=== PATIENT | female | born 1975 ===

== ENCOUNTER 2022-12-12 08:55 | Outpatient (CLI) | payer SELFPAY | END 2022-12-12 08:56 | disposition home or self-care (01) | LOC: AMB 12-23 14:09 | PROVIDERS: Visit Provider Family Medicine | DX: M54.9 Dorsalgia, unspecified (principal) | CPT/HCPCS: A0425; A0429 ==

== ENCOUNTER 2022-12-12 09:18 | Emergency (ER) | payer SELFPAY ==
[2022-12-12 09:23] VITALS: BP 146/80; PULSE 73; RESP 20; TEMP 36.1; O2SAT 100; BMI 23.2
--- NOTE | 2022-12-12 10:04 | CRLHL7_ITS ---
For Patients: As a result of the Century Cures Act, medical imaging exams and procedure reports are released immediately into your electronic medical record. You may view this report before your referring provider. If you have questions, please contact your health care provider. INDICATION: Right lower quadrant and right flank pain TECHNIQUE: Axial images were obtained from the diaphragm to the pubic symphysis. Reformats were obtained in the coronal and sagittal plane. IV Contrast: 66 cc Isovue 370 Oral Contrast: None COMPARISON: None. FINDINGS: Lower chest: Unremarkable. Liver: Unremarkable. Normal in size and attenuation. No masses. Gallbladder and bile ducts: Status post cholecystectomy. Spleen: Unremarkable. Normal in size without mass. Pancreas: Unremarkable. No mass or inflammation. Adrenal glands: Unremarkable. No nodules. Kidneys: Mildly delayed nephrogram on the right with mild right hydronephrosis. Obstructing 3 x 2 x 2 millimeter stone at the right ureterovesicular junction (series 2, image 109; series 4, image 61) Vasculature: Unremarkable. GI tract: The stomach is unremarkable. No dilated loops of large or small intestine. Normal appendix. Pelvis: Unremarkable. Bones: Unremarkable for age. IMPRESSION: Nephrolithiasis with mild right hydronephrosis and obstructing 3 x 2 x 2 millimeter stone at the right ureterovesicular junction. Please note that all CT scans at this facility use dose modulation, iterative reconstruction, and/or weight-based dosing when appropriate to reduce radiation dose to as low as reasonably achievable. Dictated by Jayme Parmar MD @ 12/12/2022 11:29:18 AM (Electronically Signed)
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
[2022-12-12 10:40] LABS: Appearance Urine Clear (Clear); Bilirubin Urine Negative (Negative); Blood Urine 3+ (Negative); Color Urine Yellow (Yellow); Glucose Urine Negative (Negative); Ketones Urine Negative (Negative); Leukocyte Esterase Urine Negative (Negative); Nitrite Urine Negative (Negative); Protein Urine Trace (Negative); Specific Gravity Urine 1.025 (1.000-1.030); Urobilinogen Urine 0.2 (0.2-1.0); pH Urine 6.5 (5.0-8.5)
[2022-12-12 10:41] LABS: Basophils Percent Auto 0.3 % (0.0-3.0); Eosinophils Percent Auto 0.4 % (0.0-7.0); Hematocrit 43.6 % (33.0-51.0); Hemoglobin* 14.5 gm/dL (12.0-16.0); Immature Granulocytes Pct Auto 0.4 %; Lymphocytes Percent Auto 10.2 % (20-44); Mean Corpuscular HGB Conc 33 gm/dL (32-36); Mean Corpuscular Hemoglobin 33 pg (26-34); Mean Corpuscular Volume 98 fL (80-100); Monocytes Percent Auto 3.7 % (0.0-11.0); Platelet Count* 291 K/uL (140-440); RDW Coefficient of Variation % 12.7 % (11.5-15.5); Red Blood Count 4.45 m/uL (4.00-5.20); White Blood Count* 11.22 K/uL (4.50-11.00)
[2022-12-12 10:54] LABS: Slide Review Reflex No
[2022-12-12 11:05] LABS: Albumin* 4.6 g/dL (3.3-5.0); Chloride* 102 mmol/L (96-114)
[2022-12-12 11:06] LABS: Potassium* 3.5 mmol/L (3.6-5.1); Sodium* 139 mmol/L (135-149)
[2022-12-12 11:08] LABS: Creatinine* 0.6 mg/dL (0.5-1.5); Est. Creatinine Clearance* 101.17; Estimated Glomerular Filt Rate 112 ml/min
[2022-12-12 11:09] LABS: Alanine Aminotransferase* 32 U/L (4-35); Alkaline Phosphatase* 64 U/L (40-150); Aspartate Amino Transferase* 30 U/L (12-35); Bilirubin Total* 0.5 mg/dL (0.1-1.5); Blood Urea Nitrogen* 17 mg/dL (5-24); Calcium* 8.9 mg/dL (8.4-10.6); Carbon Dioxide* 27 mmol/L (20-32); Glucose* 122 mg/dL (60-115); Lipase* 89 U/L (23-300); Total Protein* 8.2 g/dL (6.0-8.3)
[2022-12-12 11:19] LABS: Bacteria Urine Moderate; Squamous Epithelial Cell Urine Few (None-Few); WBC Urine 0-2 (0-5)
[2022-12-12 11:24] LABS: C Reactive Protein* < 0.5 mg/dL (0.5-1.0)
[2022-12-12] MEDS: 0.9 % SODIUM CHLORIDE 1000 ml 1,000 ML IV (11:26)
[2022-12-12] MEDS: ONDANSETRON ODT 4 MG TAB PO (12:03)
[2022-12-12 12:10] VITALS: BP 145/85; PULSE 78; RESP 20; TEMP 36.7; O2SAT 100
--- NOTE | 2022-12-16 14:50 | ED.NURSE ---
attempted multiple times to contact patient at the cell phone number listed and email to patient sent with no reply. Also, contacted other two contacts with a message left to call and second contact unable to leave a message. Sent a script and a letter explaining the need to take the medication and to fill the script for a secondary infection.
--- NOTE | 2022-12-27 14:24 | ED.NURSE ---
Pt called and a message was taken by [facility] around 1130 today. Pt states she received a letter in the mail with an RX for keflex. Pt stated to [facility] that she is allergic to Keflex. This nurse stated I would look up her chart and return call. This nurse was not able to return call until now due to high acuity pt. Number that pt called on was [phone]. Voice mail belongs to Regino. Left message asking for Diana to return call. Attempted to call number listed in chart, not an active number. Second number in chart has too many numbers to dial.
--- NOTE | 2022-12-31 08:15 | ED.NURSE ---
Patient called in via phone after receiving a letter in the mail along with a prescription to take Keflex but is allergic to the medication. Multiple attempts made to call patient and culture was done on 12/12/22 providers in the ED feel the patient should be recheck UA before placed on an antibiotic. Attempted to return phone call at [phone] left a message (vague) to call back to ED and given phone number. Patient stated feeling okay with a little lower back discomfort. concerned about starting on an antibiotic as allergic to PCN, Lyrica, Morphine and Keflex. Unsure which provider wrote Macrobid 100mg orally BID x 5 days and did not call into [facility] as unknown provider asked Dr. Weiner and felt the patient should returnt o PCP for a recheck of UA.
--- NOTE | 2023-01-03 18:46 | ED.NURSE ---
Pt called and states her abx rx was not at her pharmacy. Chart accessed and relayed to Pt info from previous RN note: Pt should be evaluated by PCP or UC for exam and repeat UA. No Rx was sent to pharmacy. Pt verbalizes understanding and states she will be seen by MD. Contact number verified for Pt.
--- NOTE | 2023-01-04 10:01 | ED.NURSE ---
Spoke with patient today on the phone about her prescription that was sent to [facility] a couple of weeks ago after being seen in the ER. Reviewed patient's record. Notified her she needs to be seen again by a provider before a prescription could be filled as was previously recommended. She stated that she wanted to know if it was okay to leave a urine test today if she is having menses. Stated it is a clean catch technique and typically if she needs treatment, that is not an exclusion. Talked about primary care and Urgent Care options. Reiterated that Dr. Guzman does not see patient's in clinic and encouraged her to make an appointment with a primary care provider. She is currently in between insurances but will plan to make an appointment with someone to manage her day to day health concerns.
== END 2022-12-12 13:40 | disposition home or self-care (01) ==
PROVIDERS: Emergency Provider Family Medicine
DX: N23 Unspecified renal colic (principal); N20.0 Calculus of kidney
CPT/HCPCS: 36415; 74177; 80053; 81001; 83690; 85025; 86140; 87086; 87186; 96360; 99284; 99285; A9270; J7030; Q9967

== ENCOUNTER 2024-11-16 16:33 | Emergency (ER) | payer OTHER, SELFPAY ==
[2024-11-16 16:39] VITALS: BP 153/92; PULSE 89; RESP 16; TEMP 36.5; O2SAT 96; BMI 27.1
--- NOTE | 2024-11-16 17:14 | ED_ITS ---
HPI - General Adult General Chief complaint: Eye Problems Stated complaint: L eye hurts, headache Time Seen by Provider: 11/16/24 16:42 History of Present Illness HPI narrative: This 49-year-old female comes in reporting headache most days over the past month or so. She states that the headache seems to go away after taking food around noon time. She comes in today because while in the shower this morning she had a brief episode where she states that her right eye vision turned black for a minute or 2. She has not had symptoms like this in the past. She does not have any history of blood clots or rheumatologic disease. She states that her vision is normal now. She does not really report the headache as a pain but more of like a pressure that seems to occur more behind her eyes. Related Data Previous Rx's ?Medication ?Instructions ?Recorded ketorolac 10 mg tablet 10 mg PO TID 5 days #15 tabs 11/16/24 methylprednisolone 4 mg tablets in See Rx Instructions PO .COMPLEX 11/16/24 a dose pack (Medrol (Reynaldo)) #21 ea Allergies Allergy/AdvReac Type Severity Reaction Status Date / Time acetaminophen (From NyQuil) Allergy Severe Difficulty Verified 11/16/24 16:50 Swallowing dextromethorphan (From Allergy Severe Difficulty Verified 11/16/24 16:50 NyQuil) Swallowing doxylamine (From NyQuil) Allergy Severe Difficulty Verified 11/16/24 16:50 Swallowing Penicillins Allergy Severe Difficulty Verified 11/16/24 16:48 Breathing pseudoephedrine (From NyQuil) Allergy Severe Difficulty Verified 11/16/24 16:50 Swallowing pregabalin (From Lyrica) Allergy Unknown Verified 11/16/24 16:48 morphine AdvReac Severe Verified 11/16/24 16:48 Review of Systems Status of ROS: Reports: 10 or more systems reviewed and unremarkable except as noted in History and below Narrative: Constitutional: No fevers, no weight gain or loss. Eyes: No discharge. Brief vision change as described above. HENT: No congestion, no sore throat, no ear pain. Cardiovascular: No chest pain, no palpitations. Respiratory: No shortness of breath, no wheezes, no cough. Gastrointestinal: No abdominal pain, no vomiting, no diarrhea. Genitourinary: No dysuria, no hematuria. Musculoskeletal: Normal range of motion. Skin: No rashes, no pruritis. Neurological: No dizziness, weakness, sensory change, speech change. Endo/Heme/Allergies: No bruising or bleeding. No polydipsia. Pysch: no suicidality, no anxiety, no insomnia. All other systems reviewed and are negative. [facility] Social History Smoking Status: Never smoker Do you use any of these nicotine containing products: None How often do you have a drink containing alcohol: never How often do you have six or more drinks on one occasion: Never AUDIT-C Alcohol total score: 0 Non-prescribed substance use: denies use service: No Exam Narrative: Exam Narrative: Constitutional: Well-developed, well-nourished, no acute distress. HEENT: Normocephalic, atraumatic. Funduscopic exam appears normal. Visual shultz intact. Her left eye has a subconjunctival hematoma on the lateral aspect. Neck: Normal range of motion. Nontender. Supple. Heart: Regular. No murmurs. Normal rate. Intact distal pulses. Lungs: Clear to auscultation. No chest discomfort. No wheezes, rhonchi, or rales. Abdomen: Normal bowel sounds. Nontender. No rebound tenderness. Genitalia: Deferred. Back: No midline tenderness. Normal range of motion. Extremities: Normal range of motion. No injury. Skin: Intact. No rash. Warm. No erythema or pallor. Neurologic: No altered sensation. No weakness. Alert and oriented. Psychiatric: No suicidality. No anxiety or depression. No insomnia. Nursing notes and vitals signs are reviewed. Const: Vital Signs, click to edit/add: Vital Signs - 24 hr 11/16/24 16:39 Temperature 97.7 F Pulse Rate [Pulse Oximeter] 89 Respiratory Rate 16 Blood Pressure [Ri ght Upper Arm] 153/92 H Pulse Oximetry 96 Course Vital Signs Vital signs: Initial Vital Signs Temperature 97.7 F 11/16/24 16:39 Temperature Source Temporal Artery Scan 11/16/24 16:39 Pulse Rate 89 11/16/24 16:39 Respiratory Rate 16 11/16/24 16:39 Blood Pressure 153/92 H 11/16/24 16:39 Blood Pressure Mean 112 H 11/16/24 16:39 Pulse Oximetry 96 11/16/24 16:39 Vital Signs Temperature 97.7 F 11/16/24 16:39 Pulse Rate 89 11/16/24 16:39 Respiratory Rate 16 11/16/24 16:39 Blood Pressure 153/92 H 11/16/24 16:39 Pulse Oximetry 96 11/16/24 16:39 Temperature 97.7 F 11/16/24 16:39 Pulse Rate 89 11/16/24 16:39 Respiratory Rate 16 11/16/24 16:39 Blood Pressure 153/92 H 11/16/24 16:39 Pulse Oximetry 96 11/16/24 16:39 Medical Decision Making MDM Narrative Medical decision making narrative: This patient comes in reporting mild headaches or pressure over the past month and this morning reports a brief episode of loss of vision in her right eye. She states that everything is back to normal now. Her exam is completely normal except for a subconjunctival hematoma on the lateral aspect of the left eye. Brief loss of vision can be a sign of some very concerning conditions such as amaurosis fugax, temporal arteritis, or a TIA. I did discuss lab and imaging options and the patient declined any CT imaging. She states that she had that done about a year ago. I did check labs in these returned with reassuring findings. In particular her C reactive protein is normal. A sed rate is yet pending but I expect that also to be in normal range. I advised the patient regarding signs and symptoms that would indicate a need for return in bed re- evaluation. Most likely this is a migraine variant. The patient did receive a prescription for Medrol Dosepak and Toradol. Lab Data Labs: Lab Results 11/16/24 Range/Units 17:22 WBC 6.35 (4.50-11.00) K/uL RBC 4.48 (4.00-5.20) m/uL Hgb 14.2 (12.0-16.0) gm/dL Hct 41.8 (33.0-51.0) % MCV 93 (80-100) fL MCH 32 (26-34) pg MCHC 34 (32-36) gm/dL RDW Coeff of Jeet 12.7 (11.5-15.5) % Plt Count 317 (140-440) K/uL Neut % (Auto) 51.9 (42.0-72.0) % Lymph % (Auto) 38.6 (20-44) % [place] % (Auto) 6.5 (0.0-11.0) % Eos % (Auto) 2.2 (0.0-7.0) % Baso % (Auto) 0.3 (0.0-3.0) % Neut # (Auto) 3.30 (1.7-7.0) K/uL Lymph # (Auto) 2.45 (0.90-2.90) K/uL [place] # (Auto) 0.40 (0.00-0.90) K/UL Eos # (Auto) 0.14 (0.00-0.50) K/uL Baso # (Auto) 0.02 (0.00-0.30) K/uL Abs Immat Gran (auto) 0.03 (0.00-0.30) K/uL Imm/Tot Granulo (auto) 0.5 % Sodium 141 (135-149) mmol/L Potassium 3.9 (3.6-5.1) mmol/L Chloride 105 (96-114) mmol/L Carbon Dioxide 27 (20-32) mmol/L Anion Gap 9 (7-15) mEq/L BUN 21 (5-24) mg/dL Creatinine 0.8 (0.5-1.5) mg/dL Estimated Creat Clear 80.51 Estimated GFR 91 ml/min Glucose 134 H (60-115) mg/dL Calcium 9.6 (8.4-10.6) mg/dL C-Reactive Protein < 0.5 L (0.5-1.0) mg/dL Discharge Plan Discharge Clinical Impression: Migraine, Subconjunctival hemorrhage Patient Disposition: Home, Self-Care Condition: Stable Additional Instructions: Take medications as needed and directed. Follow up with MD or return if symptoms are recurrent or worsening. Prescriptions: New ketorolac 10 mg tablet 10 mg PO TID 5 Days Qty: 15 0RF methylprednisolone [Medrol (Reynaldo)] 4 mg tablets,dose pack See Rx Instructions .ROUTE .COMPLEX Qty: 21 0RF Rx Instructions: orally per package directions Follow Up/Referrals: Provider,Not a Local [Primary Care Provider, Family Practice] Stand Alone Forms: [employer] Info Instructions
[2024-11-16 17:27] LABS: Basophils Absolute Auto 0.02 K/uL (0.00-0.30); Basophils Percent Auto 0.3 % (0.0-3.0); Eosinophils Absolute Auto 0.14 K/uL (0.00-0.50); Eosinophils Percent Auto 2.2 % (0.0-7.0); Hematocrit 41.8 % (33.0-51.0); Hemoglobin* 14.2 gm/dL (12.0-16.0); Immature Granulocytes Abs Auto 0.03 K/uL (0.00-0.30); Immature Granulocytes Pct Auto 0.5 %; Lymphocytes Absolute Auto 2.45 K/uL (0.90-2.90); Lymphocytes Percent Auto 38.6 % (20-44); Mean Corpuscular HGB Conc 34 gm/dL (32-36); Mean Corpuscular Hemoglobin 32 pg (26-34); Mean Corpuscular Volume 93 fL (80-100); Monocytes Percent Auto 6.5 % (0.0-11.0); Neutrophils Percent Auto 51.9 % (42.0-72.0); Platelet Count* 317 K/uL (140-440); RDW Coefficient of Variation % 12.7 % (11.5-15.5); Red Blood Count 4.48 m/uL (4.00-5.20); Slide Review Reflex No; White Blood Count* 6.35 K/uL (4.50-11.00)
[2024-11-16 17:38] LABS: Chloride* 105 mmol/L (96-114)
[2024-11-16 17:39] LABS: Potassium* 3.9 mmol/L (3.6-5.1); Sodium* 141 mmol/L (135-149)
[2024-11-16 17:42] LABS: Anion Gap 9 mEq/L (7-15); Blood Urea Nitrogen* 21 mg/dL (5-24); Calcium* 9.6 mg/dL (8.4-10.6); Carbon Dioxide* 27 mmol/L (20-32); Creatinine* 0.8 mg/dL (0.5-1.5); Est. Creatinine Clearance* 80.51; Estimated Glomerular Filt Rate 91 ml/min; Glucose* 134 mg/dL (60-115)
[2024-11-16 17:46] LABS: C Reactive Protein* < 0.5 mg/dL (0.5-1.0)
[2024-11-16 18:53] LABS: Erythrocyte SedimentationRate* 14 mm/hr (2-20)
[2024-11-16 19:05] VITALS: BP 149/95; PULSE 77; RESP 16; O2SAT 99
== END 2024-11-16 19:07 | disposition home or self-care (01) ==
PROVIDERS: Emergency Provider Emergency Medicine Emergency Medical Services
DX: G43.909 Migraine, unspecified, not intractable, without status migrainosus (principal); H11.32 Conjunctival hemorrhage, left eye; H57.12 Ocular pain, left eye
CPT/HCPCS: 36415; 80048; 85025; 85651; 86140; 99283; 99284

== ENCOUNTER 2024-11-19 13:43 | Emergency (ER) | payer OTHER, SELFPAY ==
[2024-11-19 14:01] VITALS: BP 166/93; PULSE 73; RESP 16; TEMP 36.6; O2SAT 97; BMI 27.0
--- NOTE | 2024-11-19 14:27 | CRLHL7_ITS ---
For Patients: As a result of the Century Cures Act, medical imaging exams and procedure reports are released immediately into your electronic medical record. You may view this report before your referring provider. If you have questions, please contact your health care provider. TECHNIQUE: Multiplanar CT examination of the head was performed without the use of intravenous contrast. INDICATION: Headache. Visual disturbances. COMPARISON: None. FINDINGS: No loss of george-white differentiation to suggest recent territorial infarct. No intracranial hemorrhage, abnormal extra-axial fluid collection, hydrocephalus or midline shift. The ventricles and cerebral sulci are normal in caliber. The basal cisterns are patent. The paranasal sinuses and mastoid air cells remain clear. The orbits and calvarium are unremarkable. The cerebellar tonsils are normal position. IMPRESSION: No acute intracranial findings. Please note that all CT scans at this facility use dose modulation, iterative reconstruction, and/or weight-based dosing when appropriate to reduce radiation dose to as low as reasonably achievable. Dictated by Florin Williamson MD @ 11/19/2024 3:11:18 PM (Electronically Signed)
--- NOTE | 2024-11-19 14:27 | ED_ITS ---
HPI - General Adult General Chief complaint: Eye Problems Stated complaint: Swollen left eye Time Seen by Provider: 11/19/24 13:55 Source: patient Mode of arrival: ambulatory Limitations: no limitations History of Present Illness HPI narrative: 49-year-old female coming in today complaining of feeling ?disoriented. Denies the room spinning, denies any other vertiginous symptoms. Denies nausea or vomiting. States that she feels her vision is changed in that the room looks foggy. Patient cannot see out of her right eye very well this has been the case for most of her life. She feels like this has not changed. However her left eye feels foggy and every now and then she sees flashes in that eye. She also states that it feels like there was a mosquito flying by every now and then. Patient states that she started getting migraine headaches approximately 6 months ago. She has not been worked up for this. Has not had any imaging done. Patient states that she was seen in our ER this week for a brief episode of losing consciousness. This has not happened sounds. She describes the episode resolves on her vision going black and she believes that she lost consciousness for couple of minutes. She did not fall or hit her head. Related Data Previous Rx's ?Medication ?Instructions ?Recorded ketorolac 10 mg tablet 10 mg PO TID 5 days #15 tabs 11/16/24 methylprednisolone 4 mg tablets in See Rx Instructions PO .COMPLEX 11/16/24 a dose pack (Medrol (Reynaldo)) #21 ea Allergies Allergy/AdvReac Type Severity Reaction Status Date / Time acetaminophen (From NyQuil) Allergy Severe Difficulty Verified 11/19/24 14:04 Swallowing dextromethorphan (From Allergy Severe Difficulty Verified 11/19/24 14:04 NyQuil) Swallowing doxylamine (From NyQuil) Allergy Severe Difficulty Verified 11/19/24 14:04 Swallowing Penicillins Allergy Severe Difficulty Verified 11/19/24 14:04 Breathing pseudoephedrine (From NyQuil) Allergy Severe Difficulty Verified 11/19/24 14:04 Swallowing pregabalin (From Lyrica) Allergy Unknown Verified 11/19/24 14:04 morphine AdvReac Severe Verified 11/19/24 14:04 Review of Systems Status of ROS: Reports: 10 or more systems reviewed and unremarkable except as noted in History and below PFSH PFSH Social History Smoking Status: Never smoker Do you use any of these nicotine containing products: None How often do you have a drink containing alcohol: never How often do you have six or more drinks on one occasion: Never AUDIT-C Alcohol total score: 0 Non-prescribed substance use: denies use service: No Exam Narrative: Exam Narrative: Well-nourished well-developed patient in no acute distress. Alert and oriented. Answers questions appropriately. Mood and affect are appropriate. Thoughts are goal oriented and rational. No tangential or magical thinking noted. Patient speaks in full sentences without needing to catch her breath. HEENT: Normocephalic atraumatic. Pupils are equally round reactive to light. Extraocular muscles are intact. Conjunctivae are moist, subconjunctival hematoma left lateral eye. Moist mucous membranes. No foreign objects visualized. No pain with extraocular movement. Upper and lower lids are not swollen. Skin: Well perfused without any obvious rashes. Const: Vital Signs, click to edit/add: Vital Signs - 24 hr 11/19/24 14:01 Temperature 98 F Pulse Rate [Pulse Oximeter] 73 Respiratory Rate 16 Blood Pressure [Ri ght Upper Arm] 166/93 H Pulse Oximetry 97 Oxygen Delivery Me thod Room Air Course Course ED Course: We decided to go ahead and proceed with a head CT. Fortunately this was unremarkable. Spoke to Dr. Box who had room to see the patient today. Therefore patient will be sent to the [facility] for further examination. Vital Signs Vital signs: Initial Vital Signs Temperature 98 F 11/19/24 14:01 Temperature Source Temporal Artery Scan 11/19/24 14:01 Pulse Rate 73 11/19/24 14:01 Respiratory Rate 16 11/19/24 14:01 Blood Pressure 166/93 H 11/19/24 14:01 Blood Pressure Mean 117 H 11/19/24 14:01 Blood Pressure Position Sitting 11/19/24 14:01 Pulse Oximetry 97 11/19/24 14:01 Oxygen Delivery Method Room Air 11/19/24 14:01 Vital Signs Temperature 98 F 11/19/24 14:01 Pulse Rate 73 11/19/24 14:01 Respiratory Rate 16 11/19/24 14:01 Blood Pressure 166/93 H 11/19/24 14:01 Pulse Oximetry 97 11/19/24 14:01 Oxygen Delivery Method Room Air 11/19/24 14:01 Temperature 98 F 11/19/24 14:01 Pulse Rate 73 11/19/24 14:01 Respiratory Rate 16 11/19/24 14:01 Blood Pressure 166/93 H 11/19/24 14:01 Pulse Oximetry 97 11/19/24 14:01 Oxygen Delivery Method Room Air 11/19/24 14:01 Medical Decision Making MDM Narrative Medical decision making narrative: 49-year-old female with vision changes. Patient will be sent to the eye clinic for further examination. Imaging Data CT scan - head: Attestation: I have reviewed the pertinent imaging results. Radiologist's impression: TECHNIQUE: Multiplanar CT examination of the head was performed without the use of intravenous contrast. INDICATION: Headache. Visual disturbances. COMPARISON: None. FINDINGS: No loss of george-white differentiation to suggest recent territorial infarct. No intracranial hemorrhage, abnormal extra-axial fluid collection, hydrocephalus or midline shift. The ventricles and cerebral sulci are normal in caliber. The basal cisterns are patent. The paranasal sinuses and mastoid air cells remain clear. The orbits and calvarium are unremarkable. The cerebellar tonsils are normal position. IMPRESSION: No acute intracranial findings. Discharge Plan Discharge Clinical Impression: Vision changes, Subconjunctival hemorrhage Patient Disposition: Home, Self-Care Condition: Stable Additional Instructions: Proceed directly to the [facility] for an eye examination today. Prescriptions: No Action ketorolac 10 mg tablet 10 mg PO TID 5 Days Qty: 15 0RF methylprednisolone [Medrol (Reynaldo)] 4 mg tablets,dose pack See Rx Instructions .ROUTE .COMPLEX Qty: 21 0RF Rx Instructions: orally per package directions Follow Up/Referrals: Provider,Not a Local [Primary Care Provider, Family Practice] Stand Alone Forms: [facility] Info Instructions
[2024-11-19 15:38] VITALS: BP 156/86; PULSE 69; RESP 16
== END 2024-11-19 15:39 | disposition home or self-care (01) ==
PROVIDERS: Emergency Provider Family Medicine
DX: H53.8 Other visual disturbances (principal); H11.32 Conjunctival hemorrhage, left eye
CPT/HCPCS: 70450; 99283; 99284

== ENCOUNTER 2024-12-01 16:45 | Emergency (ER) | payer OTHER, SELFPAY ==
--- OUTSIDE RECORDS SUMMARY | 2024-11-20 00:30 | XMS_ITS | Encounter Summary ---
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 Role Phone No Ref-Primary, Physician Primary Care Provider Reason for Referral * Outpatient (Routine) - Pending Review Specialty Diagnoses / Procedures Referred By Howie kowalski Referred To Contact Neurology Diagnoses Memory problem Procedures EEG Kranthi Hanley MD [address] [place] [id number] Phone: tel: fax: Referral ID Status Reason Start Date Expiration Date V isits Requested Visits Authorized [id number] Pending Review 11/20/2024 11/20/2025 1 1 Reason for Visit * Reason Comments Memory Loss Eye Pain Encounter Details Date Type Department Care Team ([facility] st Contact Info) Description 11/20/2024 12:30 AM CDT - 11/20/2024 11:29 AM CDT Emergency [facility] Emergency Department [address] [place] [id number] José Miguel Spencer DO [address] [place] [address] [id number] Cody Linton MD [address] [place], [place] [id number] Memory problem; Eye pain, unspecified laterality Discharge Disposition: Home or Self Care Social History Tobacco Use Types Packs/Day Years Used Date Smoking Tobacco: Never Assessed Comments No Sex and Gender Information Value Date Recorded Sex Assigned at Not on file Legal Sex Female 11:24 PM CDT Gender Identity Not on file Sexual Orientation Not on file documented as of this encounter Last Filed Vital Signs Vital Sign Reading Time Taken Comments Blood Pressure 118/74 11/20/2024 7:55 AM CDT Pulse 76 11/20/2024 7:55 AM CDT Temperature 36.4 C (97.6 F) 11/20/2024 7:55 AM CDT Respiratory Rate 16 11/20/2024 7:55 AM CDT Oxygen Saturation 98% 11/20/2024 7:55 AM CDT Inhaled Oxygen Concentration - - Weight 75.8 kg (167 lb) 11/19/2024 11:31 PM CDT Height 160 cm (5' 3) 11/19/2024 11:31 PM CDT Body Mass Index 29.58 11/19/2024 11:31 PM CDT documented in this encounter Discharge Instructions * Discharge Instructions* Cody Linton MD - 11/20/2024 8:06 AM CDT Please return to the emergency department with any new or worsening symptoms Please follow-up with your primary care doctor as well as your own neurologist in the next 1 to 2 days Here in the emergency department today your workup was reassuring. documented in this encounter Medications at Time of Discharge EPINEPHrine (ANY BX GENERIC EQUIV) 0.3 MG/0.3ML injection 2-pack Inject 0.3 mLs (0.3 mg) into the muscle once as needed for anaphylaxis. May repeat one time in 5-15 minutes if response to initial dose is inadequate. 2 each 11/20/2024 polyvinyl alcohol (LIQUIFILM TEARS) 1.4 % ophthalmic solution Place 1 drop Into the left eye every 6 hours as needed for dry eyes. 15 mL 11/20/2024 11/27/2024 documented as of this encounter Consult Notes * Trey Caicedo MD - 11/20/2024 4:22 AM CDT Images from the original note were not included. OPHTHALMOLOGY CONSULT NOTE 11/20/2024 Patient: Diana Noriega ASSESSMENT/PLAN: Diana Noriega is a 49 year old female who presented with Subconjunctival hemorrhage, left eye Dry eyes, bilateral 20/20 vision, normal pressure. Flat subconjunctival hemorrhage worse temporally. Associated with irregular tear film and dry eyes. No cell or flare to suggest inflammation. Of possible interest to neuropsychiatric workup, no APD, disc edema, or pallor. Recommendations: - start artificial tears 4-6x daily - cool compresses and warm compresses for comfort - routine follow-up with her preferred eye care provider - Discussed return precautions Trey Caicedo MD, PGY2 Ophthalmology Resident [facility] HISTORY OF PRESENTING ILLNESS: Diana Noriega is a 49 year old female who presented on 11/20/24 with red eye. Left eye redness x5 days, worsening significantly past 1 day Feels vision is blurred since redness worsened Pressure sensation made worse by eye movement, light sensitivity noted since worsening redness today No trauma, weight bearing, eye rubbing, sneezing Undergoing neurologic workup for complaint of forgetfulness and behavior change. 10+ review of systems were otherwise negative except for that which has been stated above. OCULAR/MEDICAL/SURGICAL HISTORIES: Past Ocular History: Wears glasses. Myopic astigmatism right eye per report. Dry eyes. Pertinent Systemic Medications: No current outpatient medications Past Medical History: No past medical history on file. Denies any pmhx, denies medication use Past Surgical History: No past surgical history on file. Family History: Noncontributory Social History: Noncontributory EXAMINATION: Base Eye Exam Visual Acuity (Snellen - Linear) Right Left Near sc 20/25 pinhole 20/20 20/25 pinhole 20/20 Tonometry (Tonopen, 4:27 AM) Right Left Pressure 12 12 Pupils Pupils Right PERRL Left PERRL Visual Calvillo Left Right Full Full Extraocular Movement Right Left Full, Ortho Full, Ortho Neuro/Psych Oriented x3: Yes Mood/Affect: Normal Slit Lamp and Fundus Exam External Exam Right Left External Normal Normal Slit Lamp Exam Right Left Lids/Lashes Normal Normal Conjunctiva/Sclera White and quiet flat HERSON worst temporal Cornea 2+ Punctate epithelial erosions 2+ Punctate epithelial erosions Anterior Chamber Deep and quiet Deep and quiet, no cell, no flare Iris Round and reactive Round and reactive Lens Clear Clear Fundus Exam Right Left Vitreous Normal Normal Disc Normal Normal, no optic disc edema, no pallor C/D Ratio 0.6 0.6 Labs/Studies/Imaging Performed None pertinent Trey Caicedo MD Resident Physician, PGY2 Department of Ophthalmology 11/20/24 4:22 AM Cosigned by Eleazar Monsivais MD at 11/22/2024 8:36 AM CDT Associated attestation - Eleazar Monsivais MD - 11/22/2024 8:36 AM CDT Not seen by staff during this visit, available should need have arisen. Plan appropriate as above. Eleazar Monsivais MD Professor, Comprehensive Ophthalmology Department of Ophthalmology and Visual Neurosciences [facility] * Susan Stallings MD - 11/20/2024 2:50 AM CDT [facility] General Neurology Consult Note Patient Name: Diana Noriega : 1975 Date of Service: November 20, 2024 Primary care provider: No Ref-Primary, Physician Date of Admission: 11/20/2024 Consulted by: José Miguel Spencer Consulted for: encephalopathy spells Chief Complaint: Chief Complaint Patient presents with Memory Loss Eye Pain History of Present Illness: Diana Noriega is a 49 year old female with no significant PMH presents to the ED for spells ofloss of memory intermittently becoming altered and not responsive, left sided migraines with left eye pain, and reduced vision in the left eye. Neurology consulted for further evaluation of ongoing intermittent unresponsive spells with loss of memory. Patient reports 6 month history of left sided throbbing headaches radiating to the back of head lasting hours that resolve without medications. Endorses associated nausea but denies vomiting with headaches. She reports 5 days ago headache with associated altered mental status and confusion noticed by co workers and taken to the hospital that lasted minutes and resolved on its owns with post spellfatigue and resolution of headache in a few hours. She reports similar spell yesterday upon gettingready for the day where she was unable to figure how to get dressed and friend came over to help. Friend noticed patient was confused and brought her into the hospital for further assessment. She repo rts headache as well with spell yesterday. Denies history of seizures or PFH of seizures. Denies history of stroke. Denies recent head trauma or history of TIRE MOLD ENGRAVER infection. She report poor oral intake the past 3 weeks after getting over upper respiratory infection that lasted 3 weeks with associated sore throat, cough, fever, and myalgias. Denies focal weakness, numbness, double vision, or dysphagia. Endorses left eye pain that started on Friday but seen by ophthalmology and no vision loss but notable subconjunctival hemorrhage of the left eye. Seen by neurologist when seen in ED 5 days ago and negative stroke workup but unable to see records. She reports follow up in the neurology clinic next week is scheduled. ROS: See HPI, 10 point review of systems otherwise negative. Past Medical History: No past medical history on file. Past Surgical History: No past surgical history on file. Family History: No family history on file. Social History: Social History Tobacco Use Smoking status: Not on file Smokeless tobacco: Not on file Substance Use Topics Alcohol use: Not on file Allergies: Allergies Allergen Reactions Acetaminophen Aspirin Morphine Penicillins [facility] Cld-[facility] [Chlorpheniramine-Dm] Medications: No current facility-administered medications for this encounter. No current outpatient medications on file. Physical Exam: Vitals: Patient Vitals for the past 8 hrs: BP Temp Temp src Pulse Resp SpO2 Height Weight 11/19/24 2331 (!) 166/98 98.3 ??F (36.8 ??C) Oral 76 18 98 % 1.6 m (5' 3) 75.8 kg (167 lb) Vitals: BP (!) 166/98 Pulse 76 Temp 98.3 ??F (36.8 ??C) (Oral) Resp 18 Ht 1.6 m (5' 3) Wt 75.8 kg (167 lb) LMP 11/10/2024 (Exact Date) SpO2 98% BMI 29.58 kg/m?? Physical Exam: Constitutional: Alert. Lying in bed comfortably. No acute distress. Head: Atraumatic, normocephalic. ENT: Moist mucous membranes. No sinus drainage. Cardiovascular: Appears warm, well-perfused, and non-toxic. Respiratory: No increased work of breathing, no accessory muscle use. Gastrointestinal: Does not appear distended. Musculoskeletal: Moving all four limbs spontaneously. Grossly intact range of motion. Skin: No rashes or lesions appreciated on visualized skin. Hematologic/Lymphatic/Immunologic: No bruising appreciated on visualized skin. Neurologic: Mental Status: alert, oriented to p/p/t. Speech is fluent, able to comprehend, and follows commands. No dysarthria. Cranial Nerves: pupils equal, round, and reactive to light and accommodation, EOMI without nystagmus, eyes move conjugately, no saccadic movement, no skew. Visual calvillo full. Smile and eyebrow raiseequal, blinking symmetric, no weakness. Lashes are buried on eye squeeze. Nasolabial folds symmetric. Facial sensation (V1-3) equal, jaw opening strong. Tongue midline. Shoulder shrug symmetric, hearing intact to conversation. Motor: no atrophy or fasciculations observed. No pronator or sensory drift. Finger tapping is equalfrequency and amplitude bilaterally. Foot tapping equal bilaterally. MRC Right Left Shoulder abduction: 5 5 Elbow Flexion: 5 5 Elbow Extension: 5 5 Wrist Extension: 5 5 Hip Flexion 5 5 Knee Extension 5 5 Knee Flexion 5 5 Dorsiflexion 5 5 Reflexes: normoreflexic and symmetric at the biceps/brachioradialis/patellar. No spread, no crossedadductors. Toes are downgoing. No clonus Sensory: intact to light touch, pinprick in all four extremities. Coordination: FNF no dysmetria, HTS intact. Gait: deferred Labs/Imaging: Recent Results (from the past 24 hours) CBC with platelets differential Narrative The following orders were created for panel order CBC with platelets differential. Procedure Abnormality Status --------- ------ CBC with platelets and ...[[id number]] Final result Please view results for these tests on the individual orders. Comprehensive metabolic panel Result Value Ref Range Sodium 138 135 - 145 mmol/L Potassium 3.4 3.4 - 5.3 mmol/L Carbon Dioxide (CO2) 25 22 - 29 mmol/L Anion Gap 9 7 - 15 mmol/L Urea Nitrogen 17.7 6.0 - 20.0 mg/dL Creatinine 0.82 0.51 - 0.95 mg/dL GFR Estimate 88 >60 mL/min/1.73m2 Calcium 9.2 8.8 - 10.4 mg/dL Chloride 104 98 - 107 mmol/L Glucose 102 (H) 70 - 99 mg/dL Alkaline Phosphatase 99 40 - 150 U/L AST 31 0 - 45 U/L ALT 41 0 - 50 U/L Protein Total 7.4 6.4 - 8.3 g/dL Albumin 4.3 3.5 - 5.2 g/dL Bilirubin Total 0.3 <=1.2 mg/dL INR Result Value Ref Range INR 0.99 0.85 - 1.15 PT 13.1 11.8 - 14.8 Seconds Partial thromboplastin time Result Value Ref Range aPTT 27 22 - 38 Seconds CBC with platelets and differential Result Value Ref Range WBC Count 8.1 4.0 - 11.0 10e3/uL RBC Count 4.24 3.80 - 5.20 10e6/uL Hemoglobin 13.5 11.7 - 15.7 g/dL Hematocrit 39.3 35.0 - 47.0 % MCV 93 78 - 100 fL MCH 31.8 26.5 - 33.0 pg MCHC 34.4 31.5 - 36.5 g/dL RDW 13.2 10.0 - 15.0 % Platelet Count 304 150 - 450 10e3/uL % Neutrophils 49 % % Lymphocytes 42 % % Monocytes 6 % % Eosinophils 2 % % Basophils 1 % % Immature Granulocytes 1 % NRBCs per 100 WBC 0 <1 /100 Absolute Neutrophils 3.9 1.6 - 8.3 10e3/uL Absolute Lymphocytes 3.4 0.8 - 5.3 10e3/uL Absolute Monocytes 0.5 0.0 - 1.3 10e3/uL Absolute Eosinophils 0.2 0.0 - 0.7 10e3/uL Absolute Basophils 0.0 0.0 - 0.2 10e3/uL Absolute Immature Granulocytes 0.0 <=0.4 10e3/uL Absolute NRBCs 0.0 10e3/uL Assessment and Recommendations: Diana Noriega is a 49 year old female with no significant PMH presents to the ED for spells ofloss of memory intermittently becoming altered and not responsive, left sided migraines with left eye pain, and reduced vision in the left eye. Neurology consulted for further evaluation of ongoing intermittent unresponsive spells with loss of memory. In the ED hemodynamically stable. Labs WNL of CBC, CMP, and coags. History notable for migraine with associated encephalopathy that resolved with migraine of 2 spells. Exam unremarkable and no FND. MRI brain w/ w/o contrast read pending but unremarkable for mass or stroke per my read. MRA head and neck pending. Differential diagnosis for migraine with complex features vs transient global amnesia vs focal seizure. If MRI brain and MRA head and neck final reads are unremarkable and patient is back at baseline would not recommend further inpatient workup but recommend follow up with neurology clinic as scheduled for further follow up. Most likely a complex migraine and recommend treatment with ibuprofen or tylenol for abortive. Recs: -If MRI brain and MRA head and neck final reads are unremarkable and patient is back at baseline would not recommend further inpatient workup -Recommend follow up with neurology clinic as scheduled for further follow up -PRN ibuprofen or tylenol for abortive for migraines -Could consider outpatient routine EEG pending outpatient follow up evaluation by neurologist Patient seen and discussed with attending neurologist Dr. Hanley. Susan Stallings MD PGY-3 Neurology Cosigned by Kranthi Hanley MD at 11/20/2024 11:22 PM CDT Associated attestation - Kranthi Hanley MD - 11/20/2024 11:22 PM CDT Physician Attestation I saw this patient with the resident and agree with the resident/fellow's findings and plan of careas documented in the note. Aguirre findings: On my interview this morning, Ms. Noriega recounted a somewhat different history regarding the memory loss from the prior day. She described having a very intense and angry exchange with some people at her place of work which involved them threatening to contact the police and she eventually spoke directly with one of the officers in her local area. The loss of memory occurred in the wake of that stressful event, and the harbor patrol police brought to her attention the subconjunctival hemorrhage of the left eye which may have happened at roughly the same time (perhaps secondary to rapid increasein blood pressure). The story is less likely to represent seizure, though I have ordered an outpatient EEG. The remainder of neurologic examination is normal. Please see A&P for additional details of medical decision making. I have personally reviewed the following data over the past 24 hrs: 8.1 \ 13.5 / 304 138 104 17.7 / 102 (H) 3.4 25 0.82 \ ALT: 41 AST: 31 AP: 99 TBILI: 0.3 ALB: 4.3 TOT PROTEIN: 7.4 LIPASE: N/A INR: 0.99 PTT: 27 D-dimer: N/A Fibrinogen: N/A Kranthi Hanley MD Date of Service (when I saw the patient): 11/20/24 Billed as a level 4 consultation due to patient presenting with an acute on chronic illness posing a severe threat to bodily function. I have reviewed notes from the primary team, nursing notes. And I have reviewed labs above including ALT, AST, BMP, CBC. documented in this encounter ED Notes * Cody Linton MD - 11/20/2024 8:04 AM CDT Emergency Department Patient Sign-out Brief HPI: This is a 49 year old female signed out to me by Dr. Spencer . See initial ED Provider notefor details of the presentation. Significant Events prior to my assuming care: n/a Exam: Patient Vitals for the past 24 hrs: BP Temp Temp src Pulse Resp SpO2 Height Weight 11/20/24 0755 118/74 97.6 ??F (36.4 ??C) Oral 76 16 98 % -- -- 11/19/24 2331 (!) 166/98 98.3 ??F (36.8 ??C) Oral 76 18 98 % 1.6 m (5' 3) 75.8 kg (167 lb) General: Patient is in no acute distress currently. HEENT: Normocephalic atraumatic. Neck: Supple Cardiovascular: Heart rate normal Pulmonary: Patient is in no respiratory distress Extremities: No signs of any significant or life-threatening trauma. Neurologic: No new focal neurologic deficits. ED RESULTS: Results for orders placed or performed during the hospital encounter of 11/20/24 (from the past 24 hours) CBC with platelets differential Status: None Collection Time: 11/20/24 2:36 AM Narrative The following orders were created for panel order CBC with platelets differential. Procedure Abnormality Status --------- ------ CBC with platelets and ...[[id number]] Final result Please view results for these tests on the individual orders. Comprehensive metabolic panel Status: Abnormal Collection Time: 11/20/24 2:36 AM Result Value Ref Range Sodium 138 135 - 145 mmol/L Potassium 3.4 3.4 - 5.3 mmol/L Carbon Dioxide (CO2) 25 22 - 29 mmol/L Anion Gap 9 7 - 15 mmol/L Urea Nitrogen 17.7 6.0 - 20.0 mg/dL Creatinine 0.82 0.51 - 0.95 mg/dL GFR Estimate 88 >60 mL/min/1.73m2 Calcium 9.2 8.8 - 10.4 mg/dL Chloride 104 98 - 107 mmol/L Glucose 102 (H) 70 - 99 mg/dL Alkaline Phosphatase 99 40 - 150 U/L AST 31 0 - 45 U/L ALT 41 0 - 50 U/L Protein Total 7.4 6.4 - 8.3 g/dL Albumin 4.3 3.5 - 5.2 g/dL Bilirubin Total 0.3 <=1.2 mg/dL INR Status: Normal Collection Time: 11/20/24 2:36 AM Result Value Ref Range INR 0.99 0.85 - 1.15 PT 13.1 11.8 - 14.8 Seconds Partial thromboplastin time Status: Normal Collection Time: 11/20/24 2:36 AM Result Value Ref Range aPTT 27 22 - 38 Seconds CBC with platelets and differential Status: None Collection Time: 11/20/24 2:36 AM Result Value Ref Range WBC Count 8.1 4.0 - 11.0 10e3/uL RBC Count 4.24 3.80 - 5.20 10e6/uL Hemoglobin 13.5 11.7 - 15.7 g/dL Hematocrit 39.3 35.0 - 47.0 % MCV 93 78 - 100 fL MCH 31.8 26.5 - 33.0 pg MCHC 34.4 31.5 - 36.5 g/dL RDW 13.2 10.0 - 15.0 % Platelet Count 304 150 - 450 10e3/uL % Neutrophils 49 % % Lymphocytes 42 % % Monocytes 6 % % Eosinophils 2 % % Basophils 1 % % Immature Granulocytes 1 % NRBCs per 100 WBC 0 <1 /100 Absolute Neutrophils 3.9 1.6 - 8.3 10e3/uL Absolute Lymphocytes 3.4 0.8 - 5.3 10e3/uL Absolute Monocytes 0.5 0.0 - 1.3 10e3/uL Absolute Eosinophils 0.2 0.0 - 0.7 10e3/uL Absolute Basophils 0.0 0.0 - 0.2 10e3/uL Absolute Immature Granulocytes 0.0 <=0.4 10e3/uL Absolute NRBCs 0.0 10e3/uL MR Brain w/o & w Contrast Status: None Collection Time: 11/20/24 5:22 AM Narrative EXAM: MR BRAIN W/O and W CONTRAST LOCATION: [facility] DATE: 11/20/2024 INDICATION: L eye pain, L subconjunctival hemorrhage, intermittent memory loss for past week COMPARISON: None. CONTRAST: 8 mL Gadavist TECHNIQUE: Routine multiplanar multisequence head MRI without and with intravenous contrast. FINDINGS: There is a significant amount of artifact that obscures much of the posterior fossa. INTRACRANIAL CONTENTS: No acute or subacute infarct. No mass, acute hemorrhage, or extra-axial fluid collections. A few foci of nonspecific T2/FLAIR hyperintensity within the white matter probably reflect minor changes of chronic small vessel ischemic injury and are within the range of expected for a patient of this age. Normal ventricles and sulci.Normal position of the cerebellar tonsils. No pathologic contrast enhancement. SELLA: No abnormality accounting for technique. OSSEOUS STRUCTURES/SOFT TISSUES: Normal marrow signal. The major intracranial vascular flow voids are maintained. ORBITS: No abnormality accounting for technique. SINUSES/MASTOIDS: Mild mucosal thickening scattered about the paranasal sinuses. No middle ear or mastoid effusion. Impression IMPRESSION: 1. Technically limited exam. No acute intracranial process. MRA Neck (Carotids) wo & w Contrast Status: None Collection Time: 11/20/24 6:08 AM Narrative EXAM: MRA NECK (CAROTIDS) W/O and W CONTRAST LOCATION: [facility] DATE: 11/20/2024 INDICATION: L eye pain, L subconjunctival hemorrhage, intermittent memory loss for past week COMPARISON: None. CONTRAST: 8 mL Gadavist TECHNIQUE: Neck MRA without and with IV contrast. Stenosis measurements made according to NASCET criteria unless otherwise specified. FINDINGS: RIGHT CAROTID: No measurable stenosis or dissection. LEFT CAROTID: No measurable stenosis or dissection. VERTEBRAL ARTERIES: No focal stenosis or dissection. Dominant left and smaller right vertebral arteries. AORTIC ARCH: Classic aortic arch anatomy with no significant stenosis at the origin of the great vessels. Impression IMPRESSION: 1. No flow-limiting stenosis of the cervical arterial vasculature. ED MEDICATIONS: Medications fluorescein (FUL-TONNY) ophthalmic strip 1 strip (1 strip Left Eye $Given by Other Clinician 11/20/24 0203) proparacaine (ALCAINE) 0.5 % ophthalmic solution 1 drop (1 drop Left Eye $Given by Other Clinician 11/20/24 0202) gadobutrol (GADAVIST) injection 8 mL (8 mLs Intravenous $Given 11/20/24 9064) Impression: No diagnosis found. Plan: Pending studies include neurology recommendations Neurology recommends discharge home, no medication changes, she is safe to follow-up with her own neurologist, and this is likely per neurology complex migraine or lower suspicion for focal seizure Discussed with patient she feels comfortable to discharge home so we will give her strict return precautions to come back to the emergency room for any new or worsening symptoms as well as instructions to follow-up with her outpatient primary care doctor and neurologist. MD Shaila Roblero Collin, MD 11/20/24 0806 * José Miguel Spencer DO - 11/19/2024 11:56 PM CDT Images from the original note were not included. [facility] ([facility]) 11/20/24 ED PROVIDER NOTE History Chief Complaint Patient presents with Memory Loss Eye Pain HPI Diana M Zuastegui is a 49 year old female who presents to the ED with multiple concerns. Patient reports that she has had significant stress since her dad about 6 months ago. She reportsthat for the past week or so she has been having episodes where she does not remember what is goingon or behaves inappropriately. She reports she was talking with someone the other day and was responding to them but was not answering the questions that were being asked of her. She reports she has also been having frequent migraines, waking up each morning with a left-sided headache that radiatesdown to her left shoulder. No aura or nausea/vomiting with these. She reports she was seen in outside ER and was prescribed Medrol Dosepak and ketorolac but these meds made her nauseous so she has not continued to take Claritin. She had labs drawn at that time which were reportedly normal. She additionally reports that she has been feeling disoriented and she turns that she has spots in her vision. She has not had any falls or head trauma. She was seen in outside ED earlier today where she had had an MRI brain done and was reportedly normal. Here in the ED she reports she is having pain around her left eye that goes down to her mouth as well as redness of the eye that began 5 days ago. She denies any trauma to the face. She additionally reports pain with moving her eye that she describes as pressure. She reports a history of myopia and astigmatism in her right eye, but never her left eye. She is currently having difficulty reading due to decreased vision in the eye. Past Medical History No past medical history on file. No past surgical history on file. EPINEPHrine (ANY BX GENERIC EQUIV) 0.3 MG/0.3ML injection 2-pack polyvinyl alcohol (LIQUIFILM TEARS) 1.4 % ophthalmic solution Allergies Allergen Reactions Acetaminophen Aspirin Morphine Penicillins [facility] [Chlorpheniramine-Dm] Family History No family history on file. Social History Past medical history, past surgical history, medications, allergies, family history, and social history were reviewed with the patient. No additional pertinent items. A medically appropriate review of systems was performed with pertinent positives and negatives noted in the HPI, and all other systems negative. Physical Exam BP: (!) 166/98 Pulse: 76 Temp: 98.3 ??F (36.8 ??C) Resp: 18 Height: 160 cm (5' 3) Weight: 75.8 kg (167 lb) SpO2: 98 % Physical Exam Vitals and nursing note reviewed. Constitutional: General: She is not in acute distress. Appearance: Normal appearance. HENT: Head: Normocephalic. Nose: Nose normal. Eyes: Pupils: Pupils are equal, round, and reactive to light. Cardiovascular: Rate and Rhythm: Normal rate and regular rhythm. Pulmonary: Effort: Pulmonary effort is normal. Abdominal: General: There is no distension. Musculoskeletal: General: No deformity. Normal range of motion. Cervical back: Normal range of motion. Skin: General: Skin is warm. Neurological: General: No focal deficit present. Mental Status: She is alert and oriented to person, place, and time. Cranial Nerves: No cranial nerve deficit. Sensory: No sensory deficit. Motor: No weakness. Coordination: Coordination normal. Psychiatric: Mood and Affect: Mood normal. ED Course, Procedures, & Data Results for orders placed or performed during the hospital encounter of 11/20/24 MR Brain w/o & w Contrast Impression IMPRESSION: 1. Technically limited exam. No acute intracranial process. MRA Neck (Carotids) wo & w Contrast Impression IMPRESSION: 1. No flow-limiting stenosis of the cervical arterial vasculature. Comprehensive metabolic panel Result Value Ref Range Sodium 138 135 - 145 mmol/L Potassium 3.4 3.4 - 5.3 mmol/L Carbon Dioxide (CO2) 25 22 - 29 mmol/L Anion Gap 9 7 - 15 mmol/L Urea Nitrogen 17.7 6.0 - 20.0 mg/dL Creatinine 0.82 0.51 - 0.95 mg/dL GFR Estimate 88 >60 mL/min/1.73m2 Calcium 9.2 8.8 - 10.4 mg/dL Chloride 104 98 - 107 mmol/L Glucose 102 (H) 70 - 99 mg/dL Alkaline Phosphatase 99 40 - 150 U/L AST 31 0 - 45 U/L ALT 41 0 - 50 U/L Protein Total 7.4 6.4 - 8.3 g/dL Albumin 4.3 3.5 - 5.2 g/dL Bilirubin Total 0.3 <=1.2 mg/dL INR Result Value Ref Range INR 0.99 0.85 - 1.15 PT 13.1 11.8 - 14.8 Seconds Partial thromboplastin time Result Value Ref Range aPTT 27 22 - 38 Seconds CBC with platelets and differential Result Value Ref Range WBC Count 8.1 4.0 - 11.0 10e3/uL RBC Count 4.24 3.80 - 5.20 10e6/uL Hemoglobin 13.5 11.7 - 15.7 g/dL Hematocrit 39.3 35.0 - 47.0 % MCV 93 78 - 100 fL MCH 31.8 26.5 - 33.0 pg MCHC 34.4 31.5 - 36.5 g/dL RDW 13.2 10.0 - 15.0 % Platelet Count 304 150 - 450 10e3/uL % Neutrophils 49 % % Lymphocytes 42 % % Monocytes 6 % % Eosinophils 2 % % Basophils 1 % % Immature Granulocytes 1 % NRBCs per 100 WBC 0 <1 /100 Absolute Neutrophils 3.9 1.6 - 8.3 10e3/uL Absolute Lymphocytes 3.4 0.8 - 5.3 10e3/uL Absolute Monocytes 0.5 0.0 - 1.3 10e3/uL Absolute Eosinophils 0.2 0.0 - 0.7 10e3/uL Absolute Basophils 0.0 0.0 - 0.2 10e3/uL Absolute Immature Granulocytes 0.0 <=0.4 10e3/uL Absolute NRBCs 0.0 10e3/uL UA with Microscopic reflex to Culture Specimen: Urine, Clean Catch Result Value Ref Range Color Urine Straw Colorless, Straw, Light Yellow, Yellow Appearance Urine Clear Clear Glucose Urine Negative Negative mg/dL Bilirubin Urine Negative Negative Ketones Urine Negative Negative mg/dL Specific [place] Urine 1.011 1.003 - 1.035 Blood Urine Small (A) Negative pH Urine 6.0 5.0 - 7.0 Protein Albumin Urine Negative Negative mg/dL Urobilinogen Urine Normal Normal mg/dL Nitrite Urine Negative Negative Leukocyte Esterase Urine Negative Negative RBC Urine <1 <=2 /HPF WBC Urine 2 <=5 /HPF Squamous Epithelials Urine 1 <=1 /HPF Transitional Epithelials Urine <1 <=1 /HPF Medications fluorescein (FUL-TONNY) ophthalmic strip 1 strip (1 strip Left Eye $Given by Other Clinician 11/20/24 0003) proparacaine (ALCAINE) 0.5 % ophthalmic solution 1 drop (1 drop Left Eye $Given by Other Clinician 11/20/24 1739) gadobutrol (GADAVIST) injection 8 mL (8 mLs Intravenous $Given 11/20/24 0527) Critical care was not performed. Medical Decision Making The patient's presentation was of moderate complexity (an undiagnosed new problem with uncertain prognosis). The patient's evaluation involved: review of 1 test result(s) ordered prior to this encounter ([facility] [place]) ordering and/or review of 3+ test(s) in this encounter (see separate area of note for details) discussion of management or test interpretation with another health professional (see separate areaof note for details) The patient's management necessitated moderate risk (prescription drug management including medications given in the ED). Assessment & Plan Patient has conjunctival hemorrhage of the left eye. Normal pressures. Visual acuity is 20/70. Was eval by the ophthalmology team. They were able to gilmar her vision to 20/20 left eye. Their exam is consistent with subconjunctival hemorrhage. No further workup from their standpoint. Recommended saline drops. Regarding her confusion, case discussed with neurology team who evaluated patient in the ED. Recommended MRI which is reassuring. Formal recommendations are pending. Signed out to AM provider. I have reviewed the nursing notes. I have reviewed the findings, diagnosis, plan and need for follow up with the patient. Discharge Medication List as of 11/20/2024 10:41 AM START taking these medications Details EPINEPHrine (ANY BX GENERIC EQUIV) 0.3 MG/0.3ML injection 2-pack Inject 0.3 mLs (0.3 mg) into the muscle once as needed for anaphylaxis. May repeat one time in 5-15 minutes if response to initial dose is inadequate., Disp-2 each, R-0, E-Prescribe polyvinyl alcohol (LIQUIFILM TEARS) 1.4 % ophthalmic solution Place 1 drop Into the left eye every 6 hours as needed for dry eyes., Disp-15 mL, R-0, Local Print Final diagnoses: Memory problem Eye pain, unspecified laterality IThomas, am serving as a trained medical record assistant to document services personally performed byJosé Miguel Spencer DO based on the provider's statements to me on November 20, 2024. This document has beenchecked and approved by the attending provider. José Miguel Kumar DO, was physically present and have reviewed and verified the accuracy of this note documented by Sylus Weets, medical record assistant. José Miguel Spencer DO [facility] EMERGENCY DEPARTMENT 11/19/2024 José Miguel Spencer DO 11/21/24 0240 * Alexei Davis RN - 11/19/2024 11:33 PM CDT Ambulatory to triage. Came in due to concern of having episodes of being forgetfull started Friday.Last Friday was brought to different ED due to episode of black out. Redness on left eye hat started last Friday too that increases today, with pain /. documented in this encounter Plan of Treatment Scheduled Orders Name Type Priority Associated Diagnoses Orde r Schedule EEG EEG Routine Memory problem Expected: 11/27/2024 (Approximate), Expi res: 11/20/2025 documented as of this encounter Procedures Procedure Name Priority Date/Time Associated Diagnosis Comments ROUTINE UA WITH MICROSCOPIC REFLEX TO CULTURE STAT 11/20/2024 7:53 AM CDT MRA NECK (CAROTIDS) W/O & W CONTRAST STAT 11/20/2024 6:08 AM CDT MR BRAIN W/O & W CONTRAST STAT 11/20/2024 5:22 AM CDT CBC WITH PLATELETS AND DIFFERENTIAL STAT 11/20/2024 2:36 AM CDT CBC WITH PLATELETS & DIFFERENTIAL STAT 11/20/2024 2:36 AM CDT INR STAT 11/20/2024 2:36 AM CDT PARTIAL THROMBOPLASTIN TIME STAT 11/20/2024 2:36 AM CDT COMPREHENSIVE METABOLIC PANEL STAT 11/20/2024 2:36 AM CDT documented in this encounter Results * (ABNORMAL) UA with Microscopic reflex to Culture (11/20/2024 7:53 AM CDT) Color Urine Straw Colorless, Straw, Light Yellow, Yellow 11/20/2024 8:15 AM CDT [facility] Appearance Urine Clear Clear 11/21/19 8:15 AM CDT [facility] Glucose Urine Negative Negative mg/dL 11/20/2024 8:15 AM CDT [facility] Bilirubin Urine Negative Negative 8:15 AM CDT [facility] Ketones Urine Negative Negative mg/dL 11/20/2024 8:15 AM CDT [facility] Specific [place] Urine 1.011 1.003 - 1.035 11/20/2024 8:15 AM CDT [facility] Blood Urine Small(A) Negative 11/20/2024 8:15 AM CDT [facility] pH Urine 6.0 5.0 - 7.0 11/20/2024 8:15 AM CDT [facility] Protein Albumin Urine Negative Negative mg/dL 11/20/2024 8:15 AM CDT [facility] Urobilinogen Urine Normal Normal mg/dL 11/20/2024 8:15 AM CDT [facility] Nitrite Urine Negative Negative 11/20/2024 8:15 AM CDT [facility] Leukocyte Esterase Urine Negative Negative 11/20/2024 8:15 AM CDT [facility] RBC Urine <1 <=2 /HPF 11/20/2024 8:15 AM CDT [facility] WBC Urine 2 <=5 /HPF 11/20/2024 8:15 AM CDT [facility] Squamous Epithelials Urine 1 <=1 /HPF 11/20/2024 8:15 AM CDT [facility] Transitional Epithelials Urine <1 <=1 /HPF 11/20/2024 8:15 AM CDT [facility] Urine URINE SPECIMEN OBTAINED BY CLEAN CATCH PROCEDURE / Unknown Non-blood Collection / Unknown 11/20/2024 7:53 AM CDT 11/20/2024 8:06 AM CDT Narrative [facility] - 11/20/2024 8:15 AM CDT Urine Culture not indicated us José Miguel Meir Golz DO LAB - URINE ORDERABLES F inal Result [facility] [place] Core Lab [address] [facility] [address] [facility], [address] [place] [address], [facility] * MRA Neck (Carotids) wo & w Contrast (11/20/2024 6:08 AM CDT) Anatomical Region Laterality Modality Neck, SUBRAD MR NEURO, UMP MR NEURO, RAD MR Magnetic Resonance 11/20/2024 6:08 AM CDT Impressions 11/20/2024 6:38 AM CDT IMPRESSION: 1. No flow-limiting stenosis of the cervical arterial vasculature. Narrative 11/20/2024 6:38 AM CDT EXAM: MRA NECK (CAROTIDS) W/O and W CONTRAST LOCATION: [facility] DATE: 11/20/2024 INDICATION: L eye pain, L subconjunctival hemorrhage, intermittent memory loss for past week COMPARISON: None. CONTRAST: 8 mL Gadavist TECHNIQUE: Neck MRA without and with IV contrast. Stenosis measurements made according to NASCET criteria unless otherwise specified. FINDINGS: RIGHT CAROTID: No measurable stenosis or dissection. LEFT CAROTID: No measurable stenosis or dissection. VERTEBRAL ARTERIES: No focal stenosis or dissection. Dominant left and smaller right vertebral arteries. AORTIC ARCH: Classic aortic arch anatomy with no significant stenosis at the origin of the great vessels. Procedure Note Sun Hernandez MD - 11/20/2024 EXAM: MRA NECK (CAROTIDS) W/O and W CONTRAST LOCATION: [facility] DATE: 11/20/2024 INDICATION: L eye pain, L subconjunctival hemorrhage, intermittent memoryloss for past week COMPARISON: None. CONTRAST: 8 mL Gadavist TECHNIQUE: Neck MRA without and with IV contrast. Stenosis measurementsmade according to NASCET criteria unless otherwise specified. FINDINGS: RIGHT CAROTID: No measurable stenosis or dissection. LEFT CAROTID: No measurable stenosis or dissection. VERTEBRAL ARTERIES: No focal stenosis or dissection. Dominant left andsmaller right vertebral arteries. AORTIC ARCH: Classic aortic arch anatomy with no significant stenosis atthe origin of the great vessels. IMPRESSION: 1. No flow-limiting stenosis of the cervical arterial vasculature. José Miguel Spencer IM MRI ORDERABLES Final Result * MR Brain w/o & w Contrast (11/20/2024 5:22 AM CDT) Anatomical Region Laterality Modality Head, SUBRAD MR NEURO, UMP MR NEURO, RAD MR Magnetic Resonance 11/20/2024 5:22 AM CDT Impressions 11/20/2024 6:32 AM CDT IMPRESSION: 1. Technically limited exam. No acute intracranial process. Narrative 11/20/2024 6:32 AM CDT EXAM: MR BRAIN W/O and W CONTRAST LOCATION: [facility] DATE: 11/20/2024 INDICATION: L eye pain, L subconjunctival hemorrhage, intermittent memory loss for past week COMPARISON: None. CONTRAST: 8 mL Gadavist TECHNIQUE: Routine multiplanar multisequence head MRI without and with intravenous contrast. FINDINGS: There is a significant amount of artifact that obscures much of the posterior fossa. INTRACRANIAL CONTENTS: No acute or subacute infarct. No mass, acute hemorrhage, or extra-axial fluid collections. A few foci of nonspecific T2/FLAIR hyperintensity within the white matter probably reflect minor changes of chronic small vessel ischemic injury and are within the range of expected for a patient of this age. Normal ventricles and sulci. Normal position of the cerebellar tonsils. No pathologic contrast enhancement. SELLA: No abnormality accounting for technique. OSSEOUS STRUCTURES/SOFT TISSUES: Normal marrow signal. The major intracranial vascular flow voids are maintained. ORBITS: No abnormality accounting for technique. SINUSES/MASTOIDS: Mild mucosal thickening scattered about the paranasal sinuses. No middle ear or mastoid effusion. Procedure Note Sun Hernandez MD - 11/20/2024 EXAM: MR BRAIN W/O and W CONTRAST LOCATION: [facility] DATE: 11/20/2024 INDICATION: L eye pain, L subconjunctival hemorrhage, intermittent memoryloss for past week COMPARISON: None. CONTRAST: 8 mL Gadavist TECHNIQUE: Routine multiplanar multisequence head MRI without and withintravenous contrast. FINDINGS: There is a significant amount of artifact that obscures much ofthe posterior fossa. INTRACRANIAL CONTENTS: No acute or subacute infarct. No mass, acutehemorrhage, or extra-axial fluid collections. A few foci of nonspecificT2/FLAIR hyperintensity within the white matter probably reflect minorchanges of chronic small vessel ischemic injury and are within the range of expected for a patient of this age.Normal ventricles and sulci. Normal position of the cerebellar tonsils. Nopathologic contrast enhancement. SELLA: No abnormality accounting for technique. OSSEOUS STRUCTURES/SOFT TISSUES: Normal marrow signal. The majorintracranial vascular flow voids are maintained. ORBITS: No abnormality accounting for technique. SINUSES/MASTOIDS: Mild mucosal thickening scattered about the paranasalsinuses. No middle ear or mastoid effusion. IMPRESSION: 1. Technically limited exam. No acute intracranial process. José Miguel Spencer DO [facility] [place] ORDERABLES Final Result * CBC with platelets and differential (11/20/2024 2:36 AM CDT) WBC Count 8.1 4.0 - 11.0 10e3/uL 11/20/2024 2:47 AM CDT [facility] RBC Count 4.24 3.80 - 5.20 10e6/uL 11/20/2024 2:47 AM CDT [facility] Hemoglobin 13.5 11.7 - 15.7 g/dL 11/20/2024 2:47 AM CDT [facility] Hematocrit 39.3 35.0 - 47.0 % 11/20/2024 2:47 AM CDT [facility] MCV 93 78 - 100 fL 11/20/2024 2:47 AM CDT [facility] MCH 31.8 26.5 - 33.0 pg 11/20/2024 2:47 AM CDT [facility] MCHC 34.4 31.5 - 36.5 g/dL 11/20/2024 2:47 AM CDT [facility] RDW 13.2 10.0 - 15.0 % 11/20/2024 2:47 AM CDT [facility] Platelet Count 304 150 - 450 10e3/uL 11/20/2024 2:47 AM CDT [facility] % Neutrophils 49 % 11/20/2024 2:47 AM CDT [facility] % Lymphocytes 42 % 11/20/2024 2:47 AM CDT [facility] % Monocytes 6 % 11/20/2024 2:47 AM CDT [facility] % Eosinophils 2 % 11/20/2024 2:47 AM CDT [facility] % Basophils 1 % 11/20/2024 2:47 AM CDT [facility] % Immature Granulocytes 1 % 11/20/2024 2:47 AM CDT [facility] NRBCs per 100 WBC 0 <1 /100 025 2:47 AM CDT [facility] Absolute Neutrophils 3.9 1.6 - 8.3 10e3/uL 11/20/2024 2:47 AM CDT [facility] Absolute Lymphocytes 3.4 0.8 - 5.3 10e3/uL 11/20/2024 2:47 AM CDT [facility] Absolute Monocytes 0.5 0.0 - 1.3 10e3/uL 11/20/2024 2:47 AM CDT [facility] Absolute Eosinophils 0.2 0.0 - 0.7 10e3/uL 11/20/2024 2:47 AM CDT [facility] Absolute Basophils 0.0 0.0 - 0.2 10e3/uL 11/20/2024 2:47 AM CDT [facility] Absolute Immature Granulocytes 0.0 <=0.4 10e3/uL 11/20/2024 2:47 AM CDT [facility] Absolute NRBCs 0.0 10e3/uL 11/20/2024 2:47 AM CDT [facility] Blood BLOOD SPECIMEN / Unknown Venipuncture / Unknown 11/20/2024 2:36 AM CDT 11/20/2024 2:41 AM CDT us José Miguel Spencer DO LAB - BLOOD ORDERABLES F inal Result [facility] [place] Core Lab [address] [facility] [address] [facility], [address] [place] [address], [facility] * Partial thromboplastin time (11/20/2024 2:36 AM CDT) [facility] aPTT 27 22 - 38 Seconds 11/20/2024 3:00 AM CDT [facility] Blood BLOOD SPECIMEN / Unknown Venipuncture / Unknown 11/20/2024 2:36 AM CDT 11/20/2024 2:41 AM CDT us José Miguel Spencer DO LAB - BLOOD ORDERABLES F inal Result Performing Organization Address City/[facility]/ZIP Co de Phone Number [facility] [place] Core Lab [address] [facility], [address] * INR (11/20/2024 2:36 AM CDT) INR 0.99 0.85 - 1.15 11/20/2024 3:00 AM CDT [facility] PT 13.1 11.8 - 14.8 Seconds 11/20/2024 3:00 AM CDT [facility] Blood BLOOD SPECIMEN / Unknown Venipuncture / Unknown 11/20/2024 2:36 AM CDT 11/20/2024 2:41 AM CDT us José Miguel Xiaos Johanna DO LAB - BLOOD ORDERABLES F inal Result Performing Organization Address City/[facility] Co de Phone Number [facility] Core Lab [address] [facility], [address] * (ABNORMAL) Comprehensive metabolic panel (11/20/2024 2:36 AM CDT) Sodium 138 135 - 145 mmol/L 11/20/2024 3:10 AM CDT [facility] Potassium 3.4 3.4 - 5.3 mmol/L 11/20/2024 3:10 AM CDT [facility] Carbon Dioxide (CO2) 25 22 - 29 mmol/L 11/20/2024 3:10 AM CDT [facility] Anion Gap 9 7 - 15 mmol/L 11/20/2024 3:10 AM CDT [facility] Urea Nitrogen 17.7 6.0 - 20.0 mg/dL 11/20/2024 3:10 AM CDT [facility] Creatinine 0.82 0.51 - 0.95 mg/dL 11/20/2024 3:10 AM CDT [facility] GFR Estimate 88 >60 mL/min/1.7 3m2 11/20/2024 3:10 AM CDT [facility] Comment:eGFR calculated 2020 CKD-EPI equation. Calcium 9.2 8.8 - 10.4 mg/dL 11/20/2024 3:10 AM CDT [facility] Chloride 104 98 - 107 mmol/L 11/20/2024 3:10 AM CDT [facility] Glucose 102(H) 70 - 99 mg/dL 11/20/2024 3:10 AM CDT [facility] Alkaline Phosphatase 99 40 - 150 U/L 11/20/2024 3:10 AM CDT [facility] AST 31 0 - 45 U/L 11/20/2024 3:10 AM CDT [facility] ALT 41 0 - 50 U/L 11/20/2024 3:10 AM CDT [facility] Protein Total 7.4 6.4 - 8.3 g/dL 11/20/2024 3:10 AM CDT [facility] Albumin 4.3 3.5 - 5.2 g/dL 11/20/2024 3:10 AM CDT [facility] Bilirubin Total 0.3 <=1.2 mg/dL 11/20/2024 3:10 AM CDT [facility] Blood BLOOD SPECIMEN / Unknown Venipuncture / Unknown 11/20/2024 2:36 AM CDT 11/20/2024 2:41 AM CDT us José Miguel Spencer DO LAB - BLOOD ORDERABLES F inal Result [facility] [place] Core Lab [address] [facility], [address] [place] [phone] documented in this encounter Visit Diagnoses Diagnosis Memory problem Memory loss Eye pain, unspecified laterality documented in this encounter Administered Medications Inactive Administered Medications - up to 3 most recent administrations Medication Order MAR Action Action Date Dose Rate Site fluorescein (FUL-TONNY) ophthalmic strip 1 strip 1 strip, Left Eye, ONCE, On 11/20/24 at 0105, For 1 dose $Given by Other Clinician 11/20/2024 2:03 AM CDT 1 strip gadobutrol (GADAVIST) injection 8 mL 8 mL, Intravenous, ONCE, On 11/20/24 at 0450, For 1 dose $Given 11/20/2024 5:27 AM CDT 8 mLs proparacaine (ALCAINE) 0.5 % ophthalmic solution 1 drop 1 drop, Left Eye, ONCE, On 11/20/24 at 0105, For 1 dose $Given by Other Clinician 11/20/2024 2:02 AM CDT 1 drop documented in this encounter Active and Recently Administered Medications Times are shown in CDT. Scheduled Medication Order 11/18/2024 11/19/2024 11/20/2024 fluorescein (FUL-TONNY) ophthalmic strip 1 strip (COMPLETED) 1 strip, Left Eye, ONCE, On 11/20/24 at 0105, For 1 dose 0203 ($Given by Othe r Clinician - Provider: Arvin Rodríguez RN) gadobutrol (GADAVIST) injection 8 mL (COMPLETED) 8 mL, Intravenous, ONCE, On 11/20/24 at 0450, For 1 dose 0527 ($Given - Provi smooth: BRAYDON Ackerman) proparacaine (ALCAINE) 0.5 % ophthalmic solution 1 drop (COMPLETED) 1 drop, Left Eye, ONCE, On 11/20/24 at 0105, For 1 dose 0202 ($Given by Othe r Clinician - Provider: Arvin Rodríguez RN) documented in this encounter Care Teams 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
--- OUTSIDE RECORDS SUMMARY | 2024-12-01 16:48 | XMS_ITS | Encounter Summary ---
Author Organization [facility] Address [address] [place] [address]. [place] [address] Care Team Providers Care Research Manager Name Role Phone No Ref-Primary, Physician Primary Care Provider Encounter Details Date Type Department Care Team (Late st Contact Info) Description 11/20/2024 Ophth Exam [facility] Services - Eye Care Service Line [address] [place] [phone] Trey Caicedo MD [address] [place] [address] Social History Tobacco Use Types Packs/Day Years Used Date Smoking Tobacco: Never Assessed Comments No Sex and Gender Information Value Date Recorded Sex Assigned at Not on file Legal Sex Female 11:24 PM CDT Gender Identity Not on file Sexual Orientation Not on file documented as of this encounter Plan of Treatment Not on file documented as of this encounter Visit Diagnoses Not on filedocumented in this encounter Care Teams Research Manager Relationship Specialty Start Date End Date No Ref-Primary, Physician PCP - General 11/20/24 documented as of this encounter
--- OUTSIDE RECORDS SUMMARY | 2024-12-01 16:48 | XMS_ITS | Encounter Summary ---
Author Organization [facility] Address [address] [place] [address] Care Team Providers Care Laborer [place] Name Role Phone Unavailable Primary Care Provider Unavailabl e Encounter Details Date Type Department Care Team (Latest Contact Info) Description 11/19/2024 Travel Social History Tobacco Use Types Packs/Day Years [...]
--- OUTSIDE RECORDS SUMMARY | 2024-12-01 16:48 | XMS_ITS | Clinical Summary ---
Author Organization [facility] Address [address] [place] [address]. [place] [address] Care Team Providers Care Clinical Quality Manager Name Role Phone No Ref-Primary, Physician Primary Care Provider Allergies Active Allergy Reactions Criticality Noted Date Comments Acetaminophen 11/19/2024 Aspirin 11/19/2024 Morphine 11/19/2024 Penicillins 11/19/2024 Chlorpheniramine-Dm 11/19/2024 Medications EPINEPHrine (ANY BX GENERIC EQUIV) 0.3 MG/0.3ML injection 2-pack Inject 0.3 mLs (0.3 mg) into the muscle once as needed for anaphylaxis. May repeat one time in 5-15 minutes if response to initial dose is inadequate. 2 each 5 Active polyvinyl alcohol (LIQUIFILM TEARS) 1.4 % ophthalmic solution Place 1 drop Into the left eye every 6 hours as needed for dry eyes. 15 mL 5 11/28/19 25 Encounters Date Type Department Care Team Description 11/20/2024 12:30 AM CDT - 11/20/2024 11:29 AM CDT Emergency [facility] Emergency Department [address] [place] [address] José Miguel Spencer DO Cousins, Collin, MD Memory problem; Eye pain, unspecified laterality Discharge Disposition: Home or Self Care 11/20/2024 Ophth Exam [facility] Services - Eye Care Service Line [address] [place] [phone] Trey Caicedo MD 11/19/2024 Travel from Last 3 Months Social History Tobacco Use Types Packs/Day Years Used Date Smoking Tobacco: Never Assessed Comments No Sex and Gender Information Value Date Recorded Sex Assigned at Not on file Legal Sex Female 11:24 PM CDT Gender Identity Not on file Sexual Orientation Not on file Last Filed Vital Signs Vital Sign Reading [...] Mass Index 29.58 11/19/2024 11:31 PM CDT Plan of Treatment Health Maintenance Due Date Last Done Comments ADVANCE CARE PLANNING 1976 ANNUAL REVIEW OF HM ORDERS 1976 CT COLONOGRAPHY 1976 FIT 1976 FLEX SIG 1976 MAMMO SCREENING 1976 sDNA (Cologuard) 1976 YEARLY PREVENTIVE VISIT 01/12/1979 COLONOSCOPY 01/12/1986 COLORECTAL CANCER SCREENING 01/12/1986 HIV SCREENING 01/12/1991 HEPATITIS C SCREENING 01/12/1994 HEPATITIS B VACCINE (1 of 3 - 19+ 3-dose series) 01/12/1995 PAP 01/12/1997 DTAP/TDAP/TD VACCINE (1 - Tdap) 01/12/2001 LIPID 2016 COVID-19 VACCINE (1 - 2023-2 5 season) 2024 PHQ-2 (once per calendar year) 2024 INFLUENZA VACCINE (#1) 2025 ZOSTER VACCINE (1 of 2) 01/12/2026 DIABETES SCREENING 11/21/2027 11/20/2024 HPV VACCINE Aged Out No longer eligi ble based on patient's age to complete this topic MENINGITIS VACCINE Aged Out No longer eligible based on patient's age to complete this topic PNEUMOCOCCAL VACCINE: PEDIAT RICS (0 to 5 YEARS) AND AT-RISK PATIENTS (6 to 49 YEARS) Aged Out No longer eligi ble based on patient's age to complete this topic Procedures Procedure Name Priority Date/Time Associated Diagnosis Comments ROUTINE UA WITH MICROSCOPIC REFLEX TO CULTURE STAT 11/20/2024 7:53 AM CDT MRA NECK (CAROTIDS) W/O & W CONTRAST STAT 11/20/2024 6:08 AM CDT MR BRAIN W/O & W CONTRAST STAT 11/20/2024 5:22 AM CDT CBC WITH PLATELETS & DIFFERENTIAL STAT 11/20/2024 2:36 AM CDT CBC WITH PLATELETS AND DIFFERENTIAL STAT 11/20/2024 2:36 AM CDT PARTIAL THROMBOPLASTIN TIME STAT 11/20/2024 2:36 AM CDT INR STAT 11/20/2024 2:36 AM CDT COMPREHENSIVE METABOLIC PANEL STAT 11/20/2024 2:36 AM CDT from Last 3 Months Results * (ABNORMAL) UA with Microscopic reflex [...] 11/20/2024 8:15 AM CDT [facility] Specific [place] Urine 1.011 1.003 - 1.035 11/20/2024 8:15 [...] Urine Culture not indicated us José Miguel Spencer DO LAB - URINE ORDERABLES F inal Result [facility] LAB[facility]AT[facility] Core Lab [address] [facility], [address] [phone] * MRA Neck (Carotids) wo & w Contrast (11/20/2024 6:08 AM CDT) Anatomical Region Laterality Modality Neck, SUBRAD MR NEURO, UMP MR NEURO, RAD MR Magnetic Resonance 11/20/2024 6:08 AM CDT Impressions 11/20/2024 6:38 AM CDT IMPRESSION: 1. No flow-limiting stenosis of the cervical arterial vasculature. Narrative 11/20/2024 6:38 AM CDT EXAM: MRA NECK (CAROTIDS) W/O and W CONTRAST LOCATION: [facility] DATE: 11/20/2024 INDICATION: L eye pain, L [...] NECK (CAROTIDS) W/O and W CONTRAST LOCATION: [facility] DATE: 11/20/2024 INDICATION: L eye pain, L [...] flow-limiting stenosis of the cervical arterial vasculature. us José Miguel Spencer DO G MRI ORDERABLES Final Result * MR Brain w/o & w Contrast (11/20/2024 5:22 AM CDT) Anatomical Region Laterality Modality Head, SUBRAD MR NEURO, UMP MR NEURO, RAD MR Magnetic Resonance 11/20/2024 5:22 AM CDT Impressions 11/20/2024 6:32 AM CDT IMPRESSION: 1. Technically limited exam. No acute intracranial process. Narrative 11/20/2024 6:32 AM CDT EXAM: MR BRAIN W/O and W CONTRAST LOCATION: [facility] DATE: 11/20/2024 INDICATION: L eye pain, L [...] MR BRAIN W/O and W CONTRAST LOCATION: [facility] DATE: 11/20/2024 INDICATION: L eye pain, L [...] Technically limited exam. No acute intracranial process. us José Miguel Spencer DO IMG MRI ORDERABLES Final Result * CBC with platelets and differential (11/20/2024 2:36 AM CDT) [facility] Signature WBC Count 8.1 4.0 - 11.0 10e3/uL [...] 2:36 AM CDT 11/20/2024 2:41 AM CDT [employer] DO LAB - BLOOD ORDERABLES F inal Result Performing Organization Address City/[facility]/ZIP Co de Phone Number U LABORATORY [facility] Core Lab [address] [facility], [address] [phone] * INR (11/20/2024 2:36 AM CDT) INR 0.99 0.85 - 1.15 11/20/2024 3:00 AM CDT [facility] PT 13.1 11.8 - 14.8 Seconds 11/20/2024 3:00 AM CDT [facility] Blood BLOOD SPECIMEN / Unknown Venipuncture / Unknown 11/20/2024 2:36 AM CDT 11/20/2024 2:41 AM CDT [employer] DO LAB - BLOOD ORDERABLES F inal Result LABORATORY [facility] Core Lab [address] [facility], [address] [phone] [place] [address] * Partial thromboplastin time (11/20/2024 2:36 AM CDT) aPTT 27 22 - 38 Seconds 11/20/2024 3:00 AM CDT [facility] Blood BLOOD SPECIMEN / Unknown Venipuncture / Unknown 11/20/2024 2:36 AM CDT 11/20/2024 2:41 AM CDT us Valdez Meir Spencer DO LAB - BLOOD ORDERABLES F inal Result [facility] LAB[facility] Core Lab 500 [facility], Room [address] [place] [address] * (ABNORMAL) Comprehensive metabolic panel (11/20/2024 2:36 [...] BLOOD ORDERABLES F inal Result [facility] LAB[facility] Core Lab [address] [facility], [address] [place] [address], [facility] from Last 3 Months Care Teams Clinical Quality Manager Relationship Specialty Start Date End Date No Ref-Primary, Physician PCP - General 11/20/24
[2024-12-01 16:54] VITALS: BP 166/82; PULSE 90; RESP 20; TEMP 36.2; O2SAT 98; BMI 30.5
--- NOTE | 2024-12-01 17:17 | ED_ITS ---
HPI - General Adult General Chief complaint: Eye Problems Stated complaint: complications for subconjunctival hemorrhage Time Seen by Provider: 12/01/24 17:03 History of Present Illness HPI narrative: Patient is a 49-year-old female who has had some type of eye problem of retro- orbital bleeding on the left eye. She reports that she is markedly better from when this happened. She was seen 2 weeks ago by Rosalva Savage. Had a negative CT scan at that time. She noted that when she bent forward today she saw some spots or therapy for but that has passed she feels markedly better with her visual acuity as well as her discomfort which is minimal. She has been seen by Pio sierra in in [place] as well who is an director multimedia. There apparently was no treatment for this issue other than just symptomatic with watching and waiting. The patient is not on any anticoagulants. She was told she can take Advil for the discomfort but I discouraged her from doing that as it could potentially cause any further bleeding. Her visual acuity is grossly normal. She reports she has always had some visual changes in her right eye. She was seen in a [facility] clinic and monitored for a period time, apparently had a imaging study such as an MRI I believe and there was no other recommendations made. She has no chest pain, breathing problem, fevers chills, neurologic complaint. Related Data Previous Rx's ?Medication ?Instructions ?Recorded ketorolac 10 mg tablet 10 mg PO TID 5 days #15 tabs 11/16/24 Allergies Allergy/AdvReac Type Severity Reaction Status Date / Time acetaminophen (From NyQuil) Allergy Severe Difficulty Verified 12/01/24 16:53 Swallowing dextromethorphan (From Allergy Severe Difficulty Verified 12/01/24 16:53 NyQuil) Swallowing doxylamine (From NyQuil) Allergy Severe Difficulty Verified 12/01/24 16:53 Swallowing Penicillins Allergy Severe Difficulty Verified 12/01/24 16:53 Breathing pseudoephedrine (From NyQuil) Allergy Severe Difficulty Verified 12/01/24 16:53 Swallowing pregabalin (From Lyrica) Allergy Unknown Verified 12/01/24 16:53 morphine AdvReac Severe Verified 12/01/24 16:53 Review of Systems Status of ROS: Reports: 6 or more systems reviewed and unremarkable except as noted in History and below PFSH PFS Social History Smoking Status: Never smoker Do you use any of these nicotine containing products: None How often do you have a drink containing alcohol: never How often do you have six or more drinks on one occasion: Never AUDIT-C Alcohol total score: 0 Non-prescribed substance use: denies use service: No Exam Narrative: Exam Narrative: Objective: Patient's blood pressure is slightly elevated Alert or x3 no distress Gross visual acuity is normal Her extraocular movements are intact pupillary reflexes equal Pupils dilated and constrict consensually Neurologic no complaints. Const: Vital Signs, click to edit/add: Vital Signs - 24 hr 12/01/24 16:54 Temperature 97.1 F L Pulse Rate [Pulse Oximeter] 90 Respiratory Rate 20 Blood Pressure [Ri ght Upper Arm] 166/82 H Pulse Oximetry 98 Oxygen Delivery Me thod Room Air Course Vital Signs Vital signs: Initial Vital Signs Temperature 97.1 F L 12/01/24 16:54 Temperature Source Temporal Artery Scan 12/01/24 16:54 Pulse Rate 90 12/01/24 16:54 Respiratory Rate 20 12/01/24 16:54 Blood Pressure 166/82 H 12/01/24 16:54 Blood Pressure Mean 110 H 12/01/24 16:54 Pulse Oximetry 98 12/01/24 16:54 Oxygen Delivery Method Room Air 12/01/24 16:54 Vital Signs Temperature 97.1 F L 12/01/24 16:54 Pulse Rate 90 12/01/24 16:54 Respiratory Rate 20 12/01/24 16:54 Blood Pressure 166/82 H 12/01/24 16:54 Pulse Oximetry 98 12/01/24 16:54 Oxygen Delivery Method Room Air 12/01/24 16:54 Temperature 97.1 F L 12/01/24 16:54 Pulse Rate 90 12/01/24 16:54 Respiratory Rate 20 12/01/24 16:54 Blood Pressure 166/82 H 12/01/24 16:54 Pulse Oximetry 98 12/01/24 16:54 Oxygen Delivery Method Room Air 12/01/24 16:54 Medical Decision Making MDM Narrative Medical decision making narrative: 41-year-old with a history of a retro-orbital hemorrhage. Follow-up is being arranged through the [place] [facility] that she saw. I think would be wilhelm however at this point even though she is significantly improved to have a follow-up appoint with [facility] which has been her director multimedia clinic. At this point she has no worrisome symptoms. No evidence of bleeding. No worsening of vision. I think it be reasonable to have her follow up tomorrow and have them see her regarding follow-up on this abnormality. She was comfortable this and agrees to the plan. Also states she has had a lot of anxiety recently with her brother being in an earthquake in [facility]. Discharge Plan Discharge Clinical Impression: Vision changes Patient Disposition: Home w/ Parent or Adult Condition: Stable Additional Instructions: Your symptoms have improved from your issue 2 weeks ago. I would recommend you see the eye doctor tomorrow. I would recommend you use the [facility] that you seen here for follow-up. Any changes or concerns in the interim he can return to the ED. would avoid any medication that could thin blood such as Advil, aspirin, Aleve. You may take Tylenol as needed. Activity Level: Light activity Discharge Diet: Regular Prescriptions: No Action ketorolac 10 mg tablet 10 mg PO TID 5 Days Qty: 15 0RF Follow Up/Referrals: Provider,Not a Local [Primary Care Provider, Family Practice] Stand Alone Forms: [employer] Info Instructions
== END 2024-12-01 17:53 | disposition home or self-care (01) ==
LOC: ED 17:39
PROVIDERS: Emergency Provider Family Medicine
DX: H11.32 Conjunctival hemorrhage, left eye (principal)
CPT/HCPCS: 99283

== ENCOUNTER 2025-01-03 13:53 | Emergency (ER) | payer OTHER, SELFPAY ==
--- OUTSIDE RECORDS SUMMARY | 2024-11-20 00:30 | XMS_ITS | Encounter Summary ---
Author Organization [facility] Address [address] [place] [address] Care Team Providers Care Fact Checker Name Role Phone No Ref-Primary, Physician Primary Care Provider Reason for Referral * Outpatient (Routine) - Pending Review Specialty Diagnoses / Procedures Referred By Howie kowalski Referred To Contact Neurology Diagnoses Memory problem Procedures EEG Kranthi Hanley MD [address] [place] [address] Phone: tel: fax: Referral ID Status Reason Start Date Expiration Date V isits Requested Visits Authorized [id number] Pending Review 11/20/2024 11/20/2025 1 1 Reason for Visit * Reason Comments Memory Loss Eye Pain Encounter Details Date Type Department Care Team ([facility] st Contact Info) Description 11/20/2024 12:30 AM CDT - 11/20/2024 11:29 AM CDT Emergency [facility] Emergency Department [address] [place] [phone] José Miguel Spencer DO [address] [place] [id number] Cody Linton MD [address] [place], [place] [id number] Memory problem; Eye pain, unspecified laterality Discharge [...] precautions Trey Caicedo MD, PGY2 Ophthalmology Resident [facility] HISTORY OF PRESENTING ILLNESS: Diana Noriega is [...] Ophthalmology Department of Ophthalmology and Visual Neurosciences [facility] * Susan Stallings MD - 11/20/2024 2:50 AM CDT [facility] General Neurology Consult Note Patient Name: Diana [...] Denies recent head trauma or 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 She report poor oral intake the [...] Reactions Acetaminophen Aspirin Morphine Penicillins Richard Kincaidandre [facility] C[facility] [Chlorpheniramine-Dm] Medications: No current facility-administered medications [...] Status --------- ------ CBC with platelets and ...[[id number]] Final result Please view results for these [...] wake of that stressful event, and the police dispatcher brought to her attention the subconjunctival hemorrhage [...] Dr. Spencer . See initial ED Provider note for details of the presentation. Significant Events prior [...] Status --------- ------ CBC with platelets and ...[[id number]] Final result Please view results for these [...] MR BRAIN W/O and W CONTRAST LOCATION: [facility] DATE: 11/20/2024 INDICATION: L eye pain, L [...] NECK (CAROTIDS) W/O and W CONTRAST LOCATION: [facility] DATE: 11/20/2024 INDICATION: L eye pain, L [...] 8 mL (8 mLs Intravenous $Given 11/20/24 1986) Impression: No diagnosis found. Plan: Pending studies [...] from the original note were not included. [facility] [facility] ([facility]) 11/20/24 ED PROVIDER NOTE History Chief Complaint [...] Negative Ketones Urine Negative Negative mg/dL Specific [place] Urine 1.011 1.003 - 1.035 Blood Urine [...] Left Eye $Given by Other Clinician 11/20/24 3864) proparacaine (ALCAINE) 0.5 % ophthalmic solution 1 drop (1 drop Left Eye $Given by Other Clinician 11/20/24 4851) gadobutrol (GADAVIST) injection 8 mL (8 mLs Intravenous $Given 11/20/24 0527) Critical care was not performed. Medical Decision Making The patient's presentation was of moderate complexity (an undiagnosed new problem with uncertain prognosis). The patient's evaluation involved: review of 1 test result(s) ordered prior to this encounter ([facility] [place]) ordering and/or review of 3+ test(s) in [...] IThomas, am serving as a trained medical services coordinator to document services personally performed byJosé Miguel Spencer DO based on the provider's statements to me on November 20, 2024. This document has beenchecked and approved by the attending provider. José Miguel Kumar DO, was physically present and have reviewed and verified the accuracy of this note documented by Sylus Weets, medical services coordinator. José Miguel Spencer DO [facility] EM[facility]ENCY DE[facility]MENT 11/19/2024 José Miguel Spencer DO [...] 11/20/2024 8:15 AM CDT [facility] Specific [place] Urine 1.011 1.003 - 1.035 11/20/2024 8:15 [...] URINE ORDERABLES F inal Result [facility] [address] [facility], Room [address] [place] [address], [facility] * MRA Neck (Carotids) wo & w Contrast (11/20/2024 6:08 AM CDT) Anatomical Region Laterality Modality Neck, SUBRAD MR NEURO, UMP MR NEURO, RAD MR Magnetic Resonance 11/20/2024 6:08 AM CDT Impressions 11/20/2024 6:38 AM CDT IMPRESSION: 1. No flow-limiting stenosis of the cervical arterial vasculature. Narrative 11/20/2024 6:38 AM CDT EXAM: MRA NECK (CAROTIDS) W/O and W CONTRAST LOCATION: [facility] DATE: 11/20/2024 INDICATION: L eye pain, L [...] NECK (CAROTIDS) W/O and W CONTRAST LOCATION: [facility] DATE: 11/20/2024 INDICATION: L eye pain, L [...] MR BRAIN W/O and W CONTRAST LOCATION: [facility] DATE: 11/20/2024 INDICATION: L eye pain, L [...] MR BRAIN W/O and W CONTRAST LOCATION: [facility] DATE: 11/20/2024 INDICATION: L eye pain, L [...] acute intracranial process. José Miguel Spencer DO [facility] MRI ORDERABLES Final Result * CBC with [...] BLOOD ORDERABLES F inal Result [facility] [address] [facility], [address] [place] [address], [facility] * Partial thromboplastin time (11/20/2024 2:36 AM CDT) [facility] aPTT 27 22 - 38 Seconds 11/20/2024 3:00 AM CDT [facility] Blood BLOOD SPECIMEN / Unknown Venipuncture / Unknown 11/20/2024 2:36 AM CDT 11/20/2024 2:41 AM CDT us José Miguel Spencer DO LAB - BLOOD ORDERABLES F inal Result Performing Organization Address City/[facility]/ZIP Co de Phone Number U LAB[facility]AT[facility] [address] [facility], [address] * INR (11/20/2024 2:36 AM CDT) INR 0.99 0.85 - 1.15 11/20/2024 3:00 AM CDT [facility] PT 13.1 11.8 - 14.8 Seconds 11/20/2024 3:00 AM CDT [facility] Blood BLOOD SPECIMEN / Unknown Venipuncture / Unknown 11/20/2024 2:36 AM CDT 11/20/2024 2:41 AM CDT us José Miguel Xiaos Johanna DO LAB - BLOOD ORDERABLES F inal Result Performing Organization Address City/[facility] Co de Phone Number U LABORATORY [facility] Core Lab 500 [facility], [address] * (ABNORMAL) Comprehensive metabolic panel (11/20/2024 [...] BLOOD ORDERABLES F inal Result [facility] [address] [facility], Room [address] [place] [phone] documented in this encounter Visit Diagnoses Diagnosis [...] RN) documented in this encounter Care Teams Fact Checker Relationship Specialty Start Date End Date No Ref-Primary, Physician PCP - General 11/20/24 documented as of this encounter
--- OUTSIDE RECORDS SUMMARY | 2025-01-03 13:57 | XMS_ITS | Encounter Summary ---
Author Organization [facility] Address [address] [place] [address]. [place] [address] Care Team Providers Care Rehab Trainer Name Role Phone No Ref-Primary, Physician Primary Care Provider Encounter Details Date Type Department Care Team (Late st Contact Info) Description 11/20/2024 Ophth Exam [facility] Services - Eye Care Service Line [address] [place] [phone] Trey Caicedo MD [address] [place] [address] Social History Tobacco Use Types Packs/Day Years [...] on filedocumented in this encounter Care Teams Rehab Trainer Relationship Specialty Start Date End Date No Ref-Primary, Physician PCP - General 11/20/24 documented as of this encounter
--- OUTSIDE RECORDS SUMMARY | 2025-01-03 13:57 | XMS_ITS | Encounter Summary ---
Author Organization [facility] Address [address] [place] [address] Care Team Providers Care Cash Accounting Clerk Name Role Phone Unavailable Primary Care Provider [...]
--- OUTSIDE RECORDS SUMMARY | 2025-01-03 13:58 | XMS_ITS | Clinical Summary ---
Author Organization [facility] Address [address] [place] [address]. [place] [address] Care Team Providers Care Operations And Intelligence Assistant Name Role Phone No Ref-Primary, Physician Primary [...] initial dose is inadequate. 2 each 11/20/2024 Active Encounters Date Type Department Care Team Description 11/20/2024 12:30 AM CDT - 11/20/2024 11:29 AM CDT Emergency [facility] [address] [place] [address] José Miguel Spencer DO Cousins, [place]lin, MD Memory problem; Eye pain, unspecified laterality Discharge Disposition: Home or Self Care 11/20/2024 Ophth Exam [facility] - Eye Care Service Line [address] [place] [id number] Trey Caicedo MD 11/19/2024 Travel from [...] 01/12/2026 DIABETES SCREENING 11/21/2027 11/20/2024 HPV VACCINE (No Doses Required) Completed MENINGITIS VACCINE Aged Out No longer eligible [...] 11/20/2024 8:15 AM CDT [facility] Specific [place] Urine 1.011 1.003 - 1.035 11/20/2024 8:15 [...] 8:15 AM CDT Urine Culture not indicated José Miguel Spencer DO LAB - URINE ORDERABLES F inal Result [facility] Core Lab [address] [facility], [address] [id number] * MRA Neck (Carotids) wo & w Contrast (11/20/2024 6:08 AM CDT) Anatomical Region Laterality Modality Neck, SUBRAD MR NEURO, UMP MR NEURO, RAD MR Magnetic Resonance 11/20/2024 6:08 AM CDT Impressions 11/20/2024 6:38 AM CDT IMPRESSION: 1. No flow-limiting stenosis of the cervical arterial vasculature. Narrative 11/20/2024 6:38 AM CDT EXAM: MRA NECK (CAROTIDS) W/O and W CONTRAST LOCATION: [facility] DATE: 11/20/2024 INDICATION: L eye pain, [...] NECK (CAROTIDS) W/O and W CONTRAST LOCATION: [facility] DATE: 11/20/2024 INDICATION: L eye pain, [...] arterial vasculature. us José Miguel Spencer DO IMG MRI ORDERABLES Final Result * MR Brain w/o & w Contrast (11/20/2024 5:22 AM CDT) Anatomical Region Laterality Modality Head, SUBRAD MR NEURO, UMP MR NEURO, RAD MR Magnetic Resonance 11/20/2024 5:22 AM CDT Impressions 11/20/2024 6:32 AM CDT IMPRESSION: 1. Technically limited exam. No acute intracranial process. Narrative 11/20/2024 6:32 AM CDT EXAM: MR BRAIN W/O and W CONTRAST LOCATION: [facility] DATE: 11/20/2024 INDICATION: L eye pain, [...] MR BRAIN W/O and W CONTRAST LOCATION: [facility] DATE: 11/20/2024 INDICATION: L eye pain, [...] intracranial process. us José Miguel Spencer DO [facility] MRI ORDERABLES Final Result * CBC with [...] 11/20/2024 2:41 AM CDT us José Miguel Meir Johanna DO LAB - BLOOD ORDERABLES F inal Result [facility] Core Lab [address] [facility], [address] * INR (11/20/2024 2:36 AM CDT) INR 0.99 0.85 - 1.15 11/20/2024 3:00 AM CDT [facility] PT 13.1 11.8 - 14.8 Seconds 11/20/2024 3:00 AM CDT [facility] Blood BLOOD SPECIMEN / Unknown Venipuncture / Unknown 11/20/2024 2:36 AM CDT 11/20/2024 2:41 AM CDT us José Miguel Meir Johanna DO LAB - BLOOD ORDERABLES F inal Result [facility] Core Lab [address] [facility], [address] * Partial thromboplastin time (11/20/2024 2:36 AM CDT) aPTT 27 22 - 38 Seconds 11/20/2024 3:00 AM CDT [facility] Blood BLOOD SPECIMEN / Unknown Venipuncture / Unknown 11/20/2024 2:36 AM CDT 11/20/2024 2:41 AM CDT us José Miguel Spencer DO LAB - BLOOD ORDERABLES F inal Result [facility] Core Lab [address] [facility] [address], [address] [place] [address], [facility] * (ABNORMAL) Comprehensive metabolic panel (11/20/2024 2:36 [...] BLOOD ORDERABLES F inal Result [facility] Drain Core Lab [address] [facility], [address] [place] [address] from Last 3 Months Care Teams Operations And Intelligence Assistant Relationship Specialty Start Date End Date No Ref-Primary, Physician PCP - General 11/20/24
[2025-01-03 14:37] VITALS: BP 140/93; PULSE 73; RESP 16; TEMP 36.6; O2SAT 99; BMI 26.5
== END 2025-01-03 19:12 | disposition home or self-care (01) ==
LOC: ED 19:05
PROVIDERS: Emergency Provider Emergency Medicine
DX: Z53.21 Procedure and treatment not carried out due to patient leaving prior to being seen by health care provider (principal)